=== PATIENT | female | born 1935 | race Caucasian/White ===

== ENCOUNTER → 2017-09-18 10:42 | Outpatient (CLI) | payer MEDICARE, SELFPAY ==
[2017-09-18 12:18] LABS: Anion Gap 4 (5-15); Chloride 104 mmol/L (98-107); Potassium 4.2 mmol/L (3.5-5.1); Sodium Level 137 mmol/L (136-145); Thyroid Stim Hormone (TSH) 2.03 uIU/mL (0.358-3.74)
[2017-09-19 01:21] LABS: Rapid Plasmin Reagin (RPR) NONREACTIVE (NONREACTIVE)
[2017-09-19 10:33] LABS: Vitamin B12 566 pg/mL (211-911)
== END ==
PROVIDERS: Family Provider Internal Medicine; PCP Internal Medicine; Visit Provider Psychiatry & Neurology Neurology
DX: R41.3 Other amnesia (principal)
CPT/HCPCS: 36415; 80051; 82607; 84443; 86592

== ENCOUNTER → 2017-09-23 09:31 | Outpatient (CLI) | payer MEDICARE, SELFPAY ==
--- NOTE | 2017-09-23 09:41 | MRI_ITS ---
STUDY: MRI BRAIN WITHOUT CONTRAST REASON FOR EXAM: Female, 82 years old. memory loss, recent falls TECHNIQUE: Standardized multiplanar fat and water weighted pulse sequences were obtained. COMPARISON: None. FINDINGS: Normal size of the ventricles and extra-axial spaces for the patient's age. There are a limited number of small white matter hyperintensities, distributed throughout the deep white matter tracts of the cerebral hemispheres, consistent with mild chronic white matter ischemic changes. Normal bilateral basal ganglia. Normal thalami. There is no extra-axial fluid accumulation. Normal flow voids within the major intracranial circulation suggesting patency by spin echo criteria. Normal sella turcica, pituitary gland, infundibular stalk, optic chiasm and hypothalamus. Normal tectal plate and pineal gland. Normal midbrain, jeffrey and medulla. Normal cerebellum. Normal basal cisterns. There is fluid in the left mastoid air cells. Normal bilateral internal auditory canals. There are bilateral ocular lens implants with otherwise normal intraorbital contents. There is mild mucosal thickening of the ethmoid and bilateral maxillary sinuses.. There is a 2.0 cm T1 and T2 hypointense lesion in the right frontal calvarium. No aggressive features are demonstrated. Normal visualized soft tissue structures. Normal visualized upper cervical spine. MRI/Brain without Contrast IMPRESSION: Involutional changes of the brain, as described above. There is mild small vessel ischemic white matter disease. There is left mastoiditis. There is a 2.0 cm lesion in the right frontal calvarium. Electronically Signed: Nathaly Tobin MD at 10:58 EDT , Service support ,
== END ==
PROVIDERS: Family Provider Internal Medicine; PCP Internal Medicine; Visit Provider Psychiatry & Neurology Neurology
DX: R41.3 Other amnesia (principal); S09.90XA Unspecified injury of head, initial encounter; Z91.81 History of falling
CPT/HCPCS: 70551

== ENCOUNTER 2018-02-19 09:00 | Outpatient (RCR) | payer MEDICARE, SELFPAY ==
--- NOTE | 2017-11-20 13:47 | HP.SP.AD_ITS ---
History - History Date of Eval: 11/20/17 Medical Diagnosis (from RX): Memory impairment Date of Onset of Diagnosis: Unknown; insidious onset with progressive nature Previous speech therapy: Yes Results: 04/08/2016 MBS revealed mild oropharyngeal dysphagia (R13.12) with brief transient penetration with complete ejection of thin liquids; no further intervention. Other Relevant Medical History/Diagnoses/Surgery: History of cerebrovascular accident / transient ischemic attack, anxiety, gastroesophageal reflux disease, diastolic dysfunction, hypertension, hypothyroidism, left ventricle hypertrophy , bradycardia Smoking Status: Former smoker Hx Smoking: No Hx Tobacco Use: No Hx Smoking Exposure: Yes - Pain Is pain an issue with your current prescribed condition?: Yes Patient Allergies - Allergies Allergies sulfamethoxazole [From ] Allergy (Verified 03/14/16 00:44) Unknown trimethoprim [From Decra] Allergy (Verified 03/14/16 00:44) Unknown venom-honey bee [bee venom (honey bee)] Allergy (Verified 03/14/16 00:44) Hives Subjective Cog/Ling/Com - Subjective Cognitive/Linguistic/Communication: Patient is a 82 year old female referred to [facility] due to reported progressive difficulties regarding memory, in particular working memory and prospective memory. Patient reports insidious onset of symptoms, with no clear causal event or time frame, appears rather aware of deficits, no obvious signs of anosognosia. Patient believes deficits may be associated with age / progressive deterioration. Patient attended the assessment alone, unable to verify accuracy of self-appraisal, with family questionnaire sent with the Patient after the Patient verbalized agreement. Patient reports a ?fairly mild stroke? a few years ago with transient balance issues, though without any longstanding changes in functioning aside from nonspecific ?vision issues? that do not preclude reading or driving. In addition, the Patient reports recurrent falls (? a few? over the last few years), though does not believe she has ever lost consciousness. 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 Patient reports she occasionally forgetting to take medication, though will typically remember within a few hours, and does not remember. Patient is a college educated individual (though was unsure as to what her degree was), and was previously employed as an cost accountant (currently retired), has not encountered any issues with product manager financial services or numerical processing. Patient reports some frustration, becomes discouraged with self / memory issues, occasional frustration with granddaughter (though does not classify as abnormal between individuals who live together), though no significant changes in personality. [place] Cognitive Assessment (MOCA): (> 26 abnormal). GPCOG Screening Test: 08/04 (0-4; cognitive impairment is indicated). Memory Impairment Screen (MIS): 05/05 (> 5; possible cognitive impairment). AD8 Dementia Screening Interview: 07/03 (2 or greater: cognitive impairment is likely to be present); Patient indicates changes in judgment, orientation, and daily problems with thinking and / or memory. Plan - Plan Plan: Patient presents with mild to moderate cognitive impairments, specifically in regards to memory functioning, with suspected mild impairments in attention and executive functioning requiring further workup, without a clear etiology of cause. Patient primarily deficits consisting of impaired short -term memory in addition to impaired working memory / attention complicating full information encoding and consolidation. Furthermore, some responses are somewhat concerning for issues with remote product manager e commerce memory (unable to recall what her degree was; did not recall ordering physician), though one would reasonably expect a significant impact on independent functioning with remote memory deficits. Progressive insidious nature of the Patients symptoms without clear causal event would suggest that this may be associated with a progressive neurological etiology (VaD vs. AD), though would require further workup via neurology to elucidate etiology of cause. Recommend further, more complex assessment measures to identify potential / suspected deficits in executive functioning / attention to assist in clarification of etiology. Patient requires continued skilled speech-language intervention targeting continual cognitive communication assessment in addition to training and implementation of external memory strategies to promote the highest level of safe, independent , and efficient level of functioning in the home and community environments. Would further consider Patient and family / caregiver education regarding cognitive changes associated with progressive neurological conditions pending further workup and identification of etiological cause. - Recommendations MBS: No Treatment Warranted: No - Frequency Frequency: 1x/Week Duration: 3 Months - Prognosis Prognosis: Good - Goal #1-5 Goal #1: Pt. will utilize external memory aids (calendar / memory book) during structured and unstructured therapeutic activities within 2 out of 3 sessions, to facilitate increased memory encoding and retrieval abilities within the home and social environments. Prompts: Min Goal #2: Pt. will participate in further assessment cognitive communication to facilitate comprehensive objective date in regards to current level of cognitive functioning, establish appropriateness for cognitive intervention, and to establish therapeutic goals at the supervised level Prompts: Min Education - Patient Instruction Patient Education: Diagnosis, Treatment Plan, Goals, Safety Precautions Person Taught: Patient Teaching Method: Discussion Response to teaching: Verbalize understanding
--- NOTE | 2018-01-15 12:05 | PN_ITS ---
REASON FOR REFERRAL The Patient is a 82 year old female referred to [facility] / [facility] due to reported progressive difficulties regarding memory, in particular working memory and prospective memory. Patient reports insidious onset of symptoms, with no clear causal event or time frame, appears rather aware of deficits, no obvious signs of anosognosia. The Patient believes deficits may be associated with age / progressive deterioration. The Patient has attended 6 sessions to date, and has been noted to forget the location of the therapy sessions during the initial portions of the intervention cycle, initially requiring assistance over the first 3 sessions to find therapy room despite attendance 2 weeks prior, further reports she became lost on the drive to the 12/04/2017 session, apparently seeing the [place] office and believing she was at the wrong location. The Patient reports driving to a nearby gas station to ask an older individual where [facility] was located (states she asked him because he was older, and was more likely to need something from here). The Patient has expressed frustration with her memory failures, and reports similar incident within the last 2 weeks (getting lost while driving to a friends home), fearful that her privileges will be revoked, frustrated that self-imposed restrictions have not ameliorated the situation. The Patient reports she becomes discouraged with self / memory issues, occasional frustration with granddaughter (though does not classify as abnormal between individuals who live together); reports she no longer cries, which worries her (history of depression w/ passing of daughter in her 30s, and within the last 10 years), though no significant changes in personality. The Patient reports a fairly mild stroke a few years ago with transient balance issues, though without any longstanding changes in functioning aside from nonspecific vision issues that do not preclude reading or driving. In addition, the Patient reports recurrent falls (a few over the last few years), though does not believe she has ever lost consciousness. 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 Patient reports she occasionally forgetting to take medication, though will typically remember within a few hours, and does not remember. Patient is a college educated individual (though was unsure as to what her degree was), and was previously employed as an systems accountant (currently retired), has not encountered any issues with chartered financial analyst or numerical processing. PAST MEDICAL HISTORY: History of cerebrovascular accident / transient ischemic attack, anxiety, gastroesophageal reflux disease, diastolic dysfunction, hypertension, hypothyroidism, left ventricle hypertrophy, bradycardia ASSESSMENT RESULTS: [place] Cognitive Assessment (MOCA): (> 26 abnormal) GPCOG Screening Test: 08/04 (0-4; cognitive impairment is indicated) Memory Impairment Screen (MIS): 05/05 (> 5; possible cognitive impairment) AD8 Dementia Screening Interview: 07/03 (2 or greater: cognitive impairment is likely to be present); Patient indicates changes in judgment, orientation, and daily problems with thinking and / or memory. Generalized Anxiety Disorder 7-item (BARBARA-7) scale: 5 possible mild anxiety disorder Cognitive-Linguistic Quick Test (CLQT) The Cognitive-Linguistic Quick Test (CLQT) is a criterion-referenced assessment designed for adults between the ages of 18 to 89 years old with known or suspected neurological dysfunctions. The CLQT is designed to enable a quick assessment of strengths and weaknesses over five cognitive domains: (1) attention, (2) memory, (3) language, (4) executive functions, and (5) visuospatial skills. Severity ratings of mild, moderate, severe, and within normal limits are established for each of the five cognitive domains. A total composite severity rating and a clock-drawing severity rating are also derived. The results of the CLQT are as follows: COGNITIVE DOMAIN SCORES: ATTENTION: (Cognitive Domain Score: 187, Severity Rating: WNL) MEMORY: (Cognitive Domain Score: 152, Severity Rating: WNL) EXECUTIVE FUNCTIONS: (Cognitive Domain Score: 24, Severity Rating: WNL) LANGUAGE: (Cognitive Domain Score: 29, Severity Rating: WNL) VISUOSPATIAL SKILLS: (Cognitive Domain Score: 84, Severity Rating: WNL) CLOCK DRAWING: (Score: 13, Severity Rating: WNL) COMPOSITE SEVERITY RATIN.0 (WNL) Functional Assessment of Verbal Reasoning and Executive Strategies (FAVRES) Completed the Functional Assessment of Verbal Reasoning and Executive Strategies (FAVRES) is a standardized cognitive communication assessment designed to assesses verbal reasoning, complex comprehension, discourse, and executive functioning during performance on a set of challenging functional tasks requiring processing of real life amounts of information. Performance is analyzed across several factors, with integration of a variety of types stimuli , and formulation of written and oral responses. Results of the FAVRES are as follows: INDIVIDUAL TASKS: TASK #1: PLANNING AN EVENT Accuracy: (Raw: 5 Percentile: 100th, SS: 108) Rational: (Raw: 4, Percentile: 15th, SS: 69) Time: (Raw: 11, Percentile: 6th, SS: 73) Total Reasoning Sub-skills: (Raw: 7) TASK #2: SCHEDULING Accuracy: (Raw: 3, Percentile: 3rd, SS: 51) Rational: (Raw: 0, Percentile: 6th, SS: 58) Time: (Raw: 40, Percentile: <1st, SS: 64) Total Reasoning Sub-skills: (Raw: 10) TASK #3: MAKING A DECISION Accuracy: (Raw: 2, Percentile: <1st, SS: 29) Rational: (Raw: 1, Percentile: <1st, SS: 1) Time: (Raw: 8, Percentile: 45th, SS: 99) Total Reasoning Sub-skills: (Raw: 6) TASK #4: BUILDING A CASE Accuracy: (Raw: 3, Percentile: 2nd, SS: 41) Rational: (Raw: 0, Percentile: <1st, SS: 16) Time: (Raw: 20, Percentile: 2nd, SS: 66) Total Reasoning Sub-skills: (Raw: 14) TOTAL TEST: Accuracy: (Raw: 13, Percentile: <1st, SS: 40, SEVERE) Rational: (Raw: 5, Percentile: <1st, SS: 3, SEVERE) Time: (Raw: 79, Percentile: <1st, SS: 63, SEVERE) Total Reasoning Sub-skills: (Raw: 36, Percentile: >3rd, SS: 76, MILD) CLINICAL FINDINGS AND RECOMMENDATIONS: The Patient presents with mild to moderate cognitive impairments, specifically in regards to memory functioning, with suspected mild impairments in attention and executive functioning without a clear etiology of cause, though strongly suspect a progressive neurological etiology (dementia, likely GDS level 3-4). Patient requires continued skilled speech-language intervention targeting continual cognitive communication assessment in addition to training and implementation of external memory strategies to promote the highest level of safe, independent, and efficient level of functioning in the home and community environments. Would further consider Patient and family / caregiver education regarding cognitive changes associated with progressive neurological conditions pending further workup and identification of etiological cause. FUNCTIONAL OUTCOMES: OUTCOME ONE: The Patient will utilize external memory aids (calendar / memory book) during structured and unstructured therapeutic activities within 2 out of 3 sessions, to facilitate increased memory encoding and retrieval abilities within the home and social environments. OUTCOME TWO: Treatment plan adjustment as needed.
--- NOTE | 2018-02-19 10:26 | HP.SP.DC ---
ST Discharge Summary - Discharged: Discharge: The Patient is a 82 year old female who has attended 10 skilled speech-language intervention sessions at [facility] due to progressive difficulties regarding memory, in particular working memory and prospective memory, with workup revealing mild to moderate cognitive impairments, specifically in regards to memory functioning, with suspected mild impairments in attention and executive functioning without a clear etiology of cause, though strongly suspect a progressive neurological etiology (dementia, likely GDS level 3-4). Intervention sessions have targeting training and implementation of external memory strategies to promote the highest level of safe, independent, and efficient level of functioning in the home and community environments, with safety measures prophylactically implemented by family (granddaughter has moved in to provide assistance), though concerns with driving safety persist, with the Patient politely declining further evaluation at this time. All goals have been met, with discharge appropriate at this time. Would consider annual workup to identify the Patients cognitive communication profile, as a progressive decline in functioning is expected.
== END 2018-02-19 19:00 | disposition home or self-care (01) ==
LOC: SP 09:00
PROVIDERS: Family Provider Internal Medicine; PCP Internal Medicine; Visit Provider Nurse Practitioner Acute Care
DX: R47.01 Aphasia (principal); R41.0 Disorientation, unspecified
CPT/HCPCS: 92507; 92523

== ENCOUNTER 2019-02-18 16:41 | Inpatient (IN) | payer MEDICARE, SELFPAY ==
[2019-02-18] VITALS (10 sets, daily range): BP systolic 161–202; BP diastolic 71–89; PULSE 55–63; RESP 14–20; TEMP 36.7–36.8; O2SAT 96–98; BMI 26.9; BMI 25.2
--- NOTE | 2019-02-18 16:54 | ED.RN ---
MD AWARE, STROKE TEAM NOT CALLED AT THIS TIME.
--- NOTE | 2019-02-18 17:04 | CT_ITS ---
We are attempting to reach an attending provider to discuss findings. An addendum with communication details will be sent when the communication is complete. STUDY: CT BRAIN WITHOUT CONTRAST REASON FOR EXAM: Female, 83 years old. Fall RADIATION DOSAGE (If Supplied By Facility): DLP = ( 812.98 ) mGycm TECHNIQUE: Transaxial CT imaging of the brain was performed without administration of intravenous contrast material. Individualized dose optimization techniques were used for this CT. COMPARISON: None. FINDINGS: There is no acute bleed or infarct. There are chronic ischemic and atrophic changes. The ventricles are normal in configuration. There is no hydrocephalus. The visualized paranasal sinuses are clear. The mastoid air cells are well aerated. There is no skull fracture. CT/Brain/Head without Contrast IMPRESSION: No acute intracranial abnormality. Chronic ischemic and atrophic changes. Electronically Signed: Ricci Hays, at 17:23 EDT Tel , Service support ,
--- NOTE | 2019-02-18 17:04 | RAD_ITS ---
STUDY: X-RAY CHEST REASON FOR EXAM: Female, 83 years old. Chest pain TECHNIQUE: Frontal view of the chest COMPARISON: X-Ray Chest March 14, 2016 FINDINGS: Pulmonary vascular prominence is present without radha edema. There is no consolidation. There are no pleural effusions. There is no pneumothorax. The heart is normal in size. The visualized osseous structures are within normal limits. RAD/Chest 1 View IMPRESSION: Pulmonary vascular prominence without radha edema. No consolidation. Electronically Signed: Ricci Hays, at 18:27 EDT Tel , Service support ,
--- NOTE | 2019-02-18 17:04 | EKG12_ITS ---
Test Reason : NEURO Blood Pressure : / mmHG Vent. Rate : 055 BPM Atrial Rate : 055 BPM P-R Int : 172 ms QRS Dur : 066 ms QT Int : 484 ms P-R-T Axes : 063 038 062 degrees QTc Int : 463 ms Sinus bradycardia Possible Left atrial enlargement Borderline ECG Confirmed by KEIKO BAER, KERRI ([id number]), fan mail editor CHANDA PORTILLO ([id number]) on 02/22/2019 10:53:29 AM Referred By: Karley Lanier Confirmed By:KERRI ADEN MD
--- NOTE | 2019-02-18 17:04 | CT_ITS ---
STUDY: CT CERVICAL SPINE WITHOUT CONTRAST REASON FOR EXAM: Female, 83 years old. Injury one day ago RADIATION DOSAGE (If Supplied By Facility): CTDIvol = ( 20.95 ) mGy, DLP = ( 453.83 ) mGycm TECHNIQUE: High resolution transaxial imaging was performed without contrast material. Sagittal and coronal images were reconstructed. Individualized dose optimization techniques were used for this CT. COMPARISON: None FINDINGS: Normal craniovertebral junction. Normal anterior atlantoaxial articulation. Normal odontoid process. There is straightening of the normal cervical lordosis. There is diffuse endplate spondylosis of the mid to lower cervical spine. C2-3: Normal endplates. Normal disc height and morphology. Normal central canal and intervertebral neuroforamina. C3-4: There is mild disc space narrowing. There are bilateral degenerative facet changes. There is no foraminal narrowing or central canal stenosis. C4-5: There is mild disc space narrowing. There are bilateral hypertrophic degenerative facet changes. There is no central canal stenosis or foraminal narrowing. C5-6: There is moderately severe disc space narrowing. There is no central canal stenosis or foraminal narrowing. There are bilateral degenerative facet changes. C6-7: There is mild disc space narrowing. The facets are within normal limits. There is no central canal stenosis or foraminal narrowing. C7-T1: Normal endplates. Normal disc height and morphology. Normal central canal and intervertebral neuroforamina. Bilateral apical pulmonary fibrosis is seen. CT/Spine Cervical without Contras IMPRESSION: Multilevel degenerative changes, as described above. There is no evidence of fracture or subluxation. Electronically Signed: Hai Grijalva MD at 17:50 EDT , Service support ,
[2019-02-18 17:16] LABS: Absolute Lymphocyte Count 2.97 X10^3/uL (0.83-4.51); Absolute Neutrophil Count 6.2 X10^3/uL (2.0-7.7); Basophil# 0.04 X10^3/uL; Basophil% 0.4 % (0-1); Eosinophils% 1.9 % (0-5); Hematocrit 44.4 % (37-47); Hemoglobin 14.5 g/dL (12.0-15.0); Lymphocyte # 2.97 X10^3/ul (4.0); Lymphocyte % 28.6 % (19-41); Mean Corp Hgb Conc 32.7 g/dL (32-36); Mean Corpuscular Hgb 29.6 pg (27.0-32.0); Mean Corpuscular Volume 90.6 fL (81-99); Mean Platelet Vol. 9.8 fl (6.2-12.0); Monocyte# 0.92 X10^3/uL; Monocyte% 8.9 % (0-10); NRBC Flagged by Analyzer 0 % (0-5); Neutrophil # 6.22 X10^3/uL (2.7-7.7); Neutrophil % 59.8 % (47-70); Platelet Count 256 K/mm3 (150-450); RBC Distribution Width CV 13.7 % (11.6-14.6); White Blood Count 10.4 K/mm3 (4.4-11.0)
[2019-02-18 17:28] LABS: Prothrombin Time (Protime)PT. 12.9 SECONDS (11.7-14.9)
[2019-02-18 17:29] LABS: Partial Thromboplast Time 30.2 Seconds (24.1-36.2)
[2019-02-18 17:50] LABS: Anion Gap 6 (5-15); BUN 24 mg/dL (7-18); BUN/Creat Ratio 18.5 RATIO (10-20); Calcium,Total 9.5 mg/dL (8.5-10.1); Chloride 104 mmol/L (98-107); EST Glomerular Filtration Rate 41 mL/min (>60); Est Glom Filt Rate - Afr Amer 50 mL/min (>60); Estimated Creatinine Clearance 28.99 ml/min; Glucose 112 mg/dL (74-106); Potassium 4.8 mmol/L (3.5-5.1); Sodium Level 138 mmol/L (136-145)
[2019-02-18 17:56] LABS: Bacteria 0 SEEN /hpf (None Seen); Red Blood Cells-Urine 0 SEEN /hpf (0-5); Squamous Epithelial Cells - UA 0 SEEN /hpf (5-10)
[2019-02-18 17:59] LABS: Color, Urine Yellow (Yellow); Glucose, Dipstick Normal (Normal); Ketone-Dipstick Negative (Negative); Leukocyte Esterase-Dipstick 25 /ul (Negative); Nitrite-Dipstick Negative (Negative); Occult Blood-Urine 10 /ul (Negative); Protein-Dipstick 15 mg/dl (Negative); Specific Gravity, Urine 1.025 (1.002-1.030); Urine Bilirubin Dipstick Negative (Negative); Urine Clarity Clear (Clear); Urine Urobilinogen Normal (Normal)
[2019-02-18 18:06] LABS: Hyaline Cast 0-5 SEEN /lpf (0-5)
[2019-02-18 18:07] LABS: Mucous, Urine RARE /hpf (<or=2+); White Blood Cells 0-5 SEEN /hpf (0-5)
--- NOTE | 2019-02-18 18:46 | ED.DCSUM_ITS ---
- ER Visit Summary Date of Service: 02/18/19 Chief Complaint: Stroke symptoms History of Present Illness: The patient is a 83 F presenting for stroke symptoms. Patient was last seen well between 7 and 9 PM last night. Today she had decline in functional status. She had difficulty with walking and getting dressed. She has had difficulty with her speech. She has been more confused than usual. She has a history of baseline dementia but family states she typically gets around well without assistance. She did have a fall last night as evidenced by an abrasion on her nose. Fall was unwitnessed. She does not recall the fall. She is able to ambulate with assistance today. Physical Examination: Vitals are stable. Patient is afebrile. Alert no acute distress. HEENT exam abrasion to nose Neck is supple, nontender Lungs are clear and equal bilaterally. Heart is regular rate and rhythm. Abdomen is soft nontender nondistended. Extremities are unremarkable. Skin is warm and dry. NIH 4: 1 for LOC questions, 1 for left leg weakness, 1 for right leg weakness, 1 for best language. Remainder of exam is unremarkable. Emergency Department Course and Treatment: EKG sinus bradycardia rate of 55. Chest x-ray shows no consolidation. CT head shows chronic changes, no bleed. CT C-spine shows no fracture. CBC, chemistries unremarkable other than BUN 24, creatinine 1.3, glucose 112. Previous creatinine 0.92. INR 1.0. Urinalysis unremarkable. On arrival discussed with [facility] neurology Dr. Tobin. tPA is not indicated. Recommend admission for MRI. Discussed with the hospitalist for admission. Disposition: Admission Impression: CVA This note was generated with [employer] dictation software. It may contain incorrect words, spelling, and punctuation that were not noted in review of the chart prior to signing ED Disposition - Plan for ED Patient: Referrals: Vaibhav Colvin MD [Primary Care Provider] -
--- NOTE | 2019-02-18 18:56 | HP.PCM_ITS ---
History of Present Illness Date of Admission: 02/18/19 Chief Complaint: altered mental status, weakness The patient is a 83 year old F with a past medical history as listed which includes dementia. She was admitted through the ED on 02/18/2019 with a complaint of weakness and difficulty with speech as well as altered mental status. History was mainly taken for patient had sudden. According to son, patient was last seen well at around 9:30 PM last night which was her normal self and could ambulate albeit slowly. She also had a normal speech. This morning she came out of her room and they noted that she was much weaker and had difficulty with walking and getting dressed. They also noted that she was having difficulty with her speech and had difficulty finding words and seemed confused. He also stated that she was very weak and could barely lift her arms or legs. They believe that she fell last night at patient had an abrasion on her nose today, it was however an unwitnessed fall and patient could not give any information about the suspected fall. Therefore decided to bring her into the ED. Vitals in the ED showed severely elevated blood pressure 182/85 respiratory rate of 20. Chemistry showed creatinine of 1.3, with a baseline of 0.9. CBC was unremarkable and initial troponin was negative. Initial CT of the brain also showed no acute intracranial pathology and EKG showed sinus bradycardia with heart rate of 155. CT of the cervical spine showed multilevel degenerative changes but no evidence of fracture or subluxation. Chest x-ray showed pulmonary vascular prominence without radha edema no consolidation. She has been admitted to be managed for debility and general weakness rule out stroke. [] Past Medical History Past Medical History (Chronic Problems): Chronic Problems Hypothyroidism (Chronic) Diastolic dysfunction (Chronic) LVH (left ventricular hypertrophy) (Chronic) HTN (hypertension) (Chronic) CVA (cerebral vascular accident) (Chronic) AMY (obstructive sleep apnea) (Chronic) Allergies sulfamethoxazole [From ] Allergy (Verified 02/18/19 16:59) Unknown trimethoprim [From Decra] Allergy (Verified 02/18/19 16:59) Unknown venom-honey bee [bee venom (honey bee)] Allergy (Verified 02/18/19 16:59) Hives Home Medications: Ambulatory Orders Medication Instructions Recorded Aspirin [Aspirin, Baby] 81 mg PO DAILY@0800 12/26/15 Levothyroxine [Synthroid] 75 mcg PO DAILY 12/26/15 Lisinopril [Zestril] 40 mg PO DAILY 12/26/15 Bupropion HCl 75 mg PO DAILY 02/18/19 Carvedilol 25 mg PO DAILY 02/18/19 Escitalopram Oxalate 20 mg PO DAILY 02/18/19 Surgical History: - - tonsils out,tubal Psychiatric History: Depression Lives: With Family Smoking Status: Former smoker Tobacco Use: Non-smoker Alcohol: None Drugs: None - *Family History Maternal History Items: Hypertension, Stroke Paternal History Items: - - thinks he of a stroke ast well. Review of Systems Constitutional: Reports: Malaise, Weakness, Fatigue. Denies: Chills, Fever, Weight Change Eyes: Denies: Blurred vision HEENT: Denies: Head Aches, Sinus Congestion, Sinus Drainage Cardiovascular: Denies: Chest Pain, Palpitations Respiratory: Denies: Cough, Shortness of breath at rest, Sputum production Gastrointestinal: Denies: Abdominal Pain, Nausea, Vomiting Genitourinary: Denies: Dysuria Musculoskeletal: Denies: Joint Pain, Joint Tenderness Skin: Denies: Rash, Wounds Neurological: Reports: Balance problems, Change in Speech, Slurred speech, Confusion Psychiatric: Denies: Anxiety, Depression, Homicidal Ideations, Suicidal Ideations Hematologic/ Lymphatic: Denies: Easy Bruising, Easy Bleeding VTE Information - Inpt Only VTE Present on Admission: No VTE Pharm Prophylaxis ordered?: Yes - Physical Exam Vitals/I&O's: Vital Signs Temp Pulse Resp BP Pulse Ox 98.1 F 57 L 16 176/80 H 97 02/18/19 16:52 02/18/19 18:04 02/18/19 18:04 02/18/19 18:04 02/18/19 18:04 Oxygen Delivery Method Room Air Weight: 161 lb 13.109 oz Body Mass Index (BMI) 26.9 Finger Stick Blood Glucose 121 General: Alert, Cooperative, Confused HEENT: Atraumatic, PERRLA, EOMI, Normocephalic Oral: Dry Mucosa Neck: Supple, No JVD, Negative Carotid Bruits Lungs: Clear to auscultation, Normal air movement, No rhonchi, No wheeze Cardiovascular: Regular rate, Regular Rhythm, Normal S1, Normal S2, No murmurs Abdomen: Bowel Sounds Present, Soft, Non Tender, Non-Distended, No Hepato- splenomegaly Extremities: No clubbing, No cyanosis, No edema, Capillary Refill Less than 3 Seconds Skin: No rashes, No breakdown Musculoskeletal: No Tenderness to Palpation of Joints or Extremities Lymphatic: No Cervical, Supraclavicular, or Inguinal Adenopathy Neurological: Cranial nerves II-XII grossly intact, - - does appear to have difficulty finding words- mild expressive aphasia, power in all extremities is 5/5; no tingling or numbness. NIHSS is 1 Laboratory Results 02/18/19 17:03: WBC 10.4, RBC 4.90, Hgb 14.5, Hct 44.4, MCV 90.6, MCH 29.6, MCHC 32.7, RDW Std Deviation 46.0 H, RDW Coeff of Cirilo 13.7, Plt Count 256, MPV 9.8, Immature Gran % (Auto) 0.400, Neut % (Auto) 59.8, Lymph % (Auto) 28.6, [place] % (Auto) 8.9, Eos % (Auto) 1.9, Baso % (Auto) 0.4, Absolute Neuts (auto) 6.2, Absolute Lymphs (auto) 2.97, Nucleated RBC % 0 02/18/19 17:03: PT 12.9, INR 1.0, APTT 30.2 02/18/19 17:03: Sodium 138, Potassium 4.8, Chloride 104, Carbon Dioxide 28.0, Anion Gap 6, BUN 24 H, Creatinine 1.30 H, Estim Creat Clear Calc 28.99, Est GFR (MDRD) Af Amer 50 L, Est GFR (MDRD) Non-Af 41 L, BUN/Creatinine Ratio 18.5, Glucose 112 H, Calcium 9.5, Troponin I < 0.015 02/18/19 17:45: Urine Color Yellow, Urine Clarity Clear, Urine pH 5.0, Ur Specific [place] 1.025, Urine Protein 15 H, Urine Glucose (UA) Normal, Urine Ketones Negative, Urine Occult Blood 10 H, Urine Nitrite Negative, Urine Bilirubin Negative, Urine Urobilinogen Normal, Ur Leukocyte Esterase 25 H, Urine RBC 0 SEEN, Urine WBC 0-5 SEEN, Ur Squamous Epith Cells 0 SEEN, Urine Bacteria 0 SEEN, Hyaline Casts 0-5 SEEN, Urine Mucus RARE Assessment/Plan All Active Problems Anxiety (Acute) GERD (gastroesophageal reflux disease) (Acute) Bradycardia (Acute) 83 y/o admitted with a complaint of weakness, slurred speech and confusion 1. Acute metabolic encephalopathy, to rule out stroke * admit to pCU with telemetry * neurochecks q4hrs * NPO until she passes dysphagia screen, then advance diet to 2gram low sodium diet as tolerated * PO aspirin 81mg daily * for MRI tomorrow; 2D echo, CTA of the head and neck with contrast * check lipid panel and A1C * neurology consult * PT/OT consult * fall precautions * 2. Bradycardia: * Heart rate was 55 EKG. Sinus bradycardia. Currently asymptomatic. Will monitor and if it falls further. * TSH ordered. * Continue carvedilol for now. * 3. Mild SAYDA: * Creatinine is 1.3. Baseline is around 0.9. * Will hydrate with IV fluids and monitor. * 4. Dementia: Unclear which type of dementia. Follows with neurology on outpatient basis. She will continue. 5. Depression: On bupropion 6. Hypertension: * Poorly controlled. Blood pressure up in the 180s systolic. Son states systolic blood pressure usually in the 130s. * Goal is for blood pressure 130/80 or less if stroke is ruled out. On carvedilol 25 mg daily. * We will continue for now as she appears asymptomatic from bradycardia. If bradycardia persists, will hold. IV hydralazine PRN. 7. Hypothyroidism: On Synthroid 8. DVT prophylaxis: Lovenox CODE STATUS: DNR CCA * Patient counseled extensively about different types of CODE STATUS including full code, DNR CCA and DNR CCA. Patient elects to be DNRCCA. Total [id number] time 16 minutes. Code Visit OBSV E&M: 65900 Initial observation care L3 Procedures: 37563 Advncd Care Plan 30 Min
[2019-02-19] VITALS (12 sets, daily range): BP systolic 141–190; BP diastolic 70–99; PULSE 60–76; RESP 16–18; TEMP 36.7–37.1; O2SAT 95–98; BMI 25.2
[2019-02-19] MEDS: Levothyroxine 75 MCG Tablet PO (05:25)
--- NOTE | 2019-02-19 05:55 | CT_ITS ---
STUDY: CTA HEAD AND NECK WITH CONTRAST REASON FOR EXAM: Female, 83 years old. Confusion and weakness with difficulty speaking, status post fall yesterday. Mental status change. RADIATION DOSAGE (If Supplied By Facility): CTDIvol = ( 25.09 ) mGy, DLP = ( 622.95 ) mGycm TECHNIQUE: CT angiography was performed with a multi-detector CT scanner. Data acquisition was obtained from the skull base through the vertex following intravenous administration of IV 100mL [id number]-[id number] 100ML. MIP images were reconstructed from the axial data set. Post-processing of the angiographic images was performed, with multiplanar reformation and 3D reconstruction. Individualized dose optimization techniques were used for this CT. COMPARISON: No relevant priors. FINDINGS: Normal bilateral petrous carotid arteries. There is calcified plaque formation of the right cavernous carotid artery, without a cross-sectional luminal stenosis. There is calcified plaque formation of the left cavernous carotid artery, without a cross-sectional luminal stenosis. There is non-visualization of the right A1 segment of the anterior cerebral arteries consistent with either aplastic development or an occlusion. Normal left A1 segments of the anterior cerebral artery. Normal intact anterior communicating artery (ACOM). Normal bilateral A2 segments of the anterior cerebral arteries. Normal right M1 and M2 segments of the middle cerebral arteries, with a normal M1 bifurcation. Normal left M1 and M2 segments of the middle cerebral arteries, with a normal M1 bifurcation. Normal right posterior communicating artery (PCOM). There is a persistent origin of the left posterior cerebral artery with absence of the posterior communicating artery (PCOM). Normal bilateral vertebral arteries. Normal basilar artery with a normal basilar bifurcation. The visualized bilateral superior cerebellar (SCA) arteries are normal. Normal bilateral P1, P2 and visualized P3 segments of the posterior cerebral arteries. There is no demonstrated aneurysm of the [place]. There is no demonstrated abnormality of the visualized brain. AORTIC ARCH: There is mild atherosclerotic calcific plaque formation of the aortic arch and great vessels arising from the aortic arch, without a hemodynamically significant stenosis. There is a normal origin of the brachiocephalic, left common carotid, and left subclavian arteries. RIGHT CAROTID ARTERIES: Normal right common carotid artery (CCA). There is mild atherosclerotic plaque formation with minimal narrowing of the right carotid bulb. Normal origin of the right internal carotid (ICA) artery without a hemodynamically significant stenosis. Normal visualized cervical portion of the right internal carotid artery. Normal origin of the right external carotid artery (ECA). LEFT CAROTID ARTERIES: Normal left common carotid artery (CCA). Prominent left common carotid bulb, larger compared to right with calcified atherosclerotic disease and no significant narrowing. Minimal calcified plaque at the origin of the left internal carotid (ICA) artery without a hemodynamically significant stenosis. Normal visualized cervical portion of the left internal carotid artery. Normal origin of the left external carotid artery (ECA). VERTEBRAL ARTERIES: Normal bilateral vertebral arteries. CT/CTA Head AND Neck W/ Contrast IMPRESSION: CTA head: Mild calcified atherosclerotic changes as described above, with no evidence of significant stenosis or aneurysm. CTA NECK:. Mild calcified atherosclerotic changes as described above with no evidence of hemodynamically high-grade stenosis. Electronically Signed: Natalee Duong MD at 6:43 EDT , Service support ,
--- NOTE | 2019-02-19 07:00 | ECHOD_ITS ---
Reason For Study: TIA/CVA Procedure This was a 2D Doppler, Color Flow transthoracic echocardiogram. Exam performed portable in patient room. Left Ventricle Normal LV size. Left ventricular systolic function is normal. The estimated ejection fraction is 65 %. Stage 1 diastolic dysfunction. No regional wall motion abnormalities noted. Right Ventricle Normal RV size. Normal systolic function. Atria Normal left atrium. Normal right atrium. Bubble contrast study negative for right to left interatrial shunt. Mitral Valve Normal mitral valve. Tricuspid Valve Normal tricuspid valve. Mild (1+) tricuspid valve insufficiency. Pulmonary artery systolic pressure is 28 mmHg. Aortic Valve Normal aortic valve. Pulmonic Valve Normal pulmonic valve. Great Vessels Normal aortic root. The pulmonary artery is normal size. Normal inferior vena cava. Pericardium/Pleural No pericardial effusion. Medication Performed a rapid injection of agitated mix of 9 cc saline and 1cc air to assess for atrial septal defect. MMode/2D Measurements & Calculations LVIDd: 3.8 cm IVSd: 1.2 cm Ao root diam: 2.6 cm LVIDs: 2.0 cm LVPWd: 0.96 cm RVDd: 3.0 cm FS: 46.4 % LAV(MOD-bp): 39.7 ml LA A4 area: 13.4 cm2 LA dimension(2D): 3.4 cm LAV(MOD-bp) Indexed: 22.0 ml/m2 LAV(MOD-sp2): 39.3 ml LAV(MOD-sp4): 34.6 ml Time Measurements MV dec time: 0.36 sec Doppler Measurements & Calculations MV E max thom: 63.7 cm/sec Lat Peak E' Thom: 4.9 cm/sec Med Peak E' Thom: 5.4 cm/sec MV A max thom: 104.0 cm/sec E/E' lat: 13.0 E/E' med: 11.8 MV E/A: 0.61 Ao V2 max: 149.1 cm/sec LV V1 max: 92.4 cm/sec PA V2 max: 79.0 cm/sec Ao max P.9 mmHg LV V1 max P.4 mmHg TR max thom: 246.5 cm/sec TR max P.3 mmHg Interpretation Summary Normal LV size. Left ventricular systolic function is normal. The estimated ejection fraction is 65 %. Stage 1 diastolic dysfunction. Bubble contrast study negative for right to left interatrial shunt. Ordering Physician: Karley Lanier Referring Physician: Vaibhav Colvin Performed By: Miguelina Thorpe, KRYSTLE, RVT
--- NOTE | 2019-02-19 07:00 | MRI_ITS ---
We are attempting to reach an attending provider to discuss findings. An addendum with communication details will be sent when the communication is complete. STUDY: MRI BRAIN WITHOUT CONTRAST REASON FOR EXAM: Female, 83 years old. Weakness, confusion, stroke TECHNIQUE: Standardized multiplanar fat and water weighted pulse sequences were obtained. COMPARISON: CT 02/18/2019, MRI 09/23/2017 FINDINGS: There is moderate cerebral atrophy with widening of the extra-axial spaces and ventricular dilatation. There are multiple white matter hyperintensities, distributed throughout the deep white matter tracts of the cerebral hemispheres, consistent with moderate chronic white matter ischemic changes. 1 cm oval hyperintensities of the left thalamus and the left putamen demonstrate faint restricted diffusion consistent with right subacute infarcts. Normal T2* images of the brain without demonstrated susceptibility artifact. There is no demonstrated hemosiderin stain. Normal bilateral basal ganglia. Normal thalami. There is no extra-axial fluid accumulation. Normal flow voids within the major intracranial circulation suggesting patency by spin echo criteria. Normal sella turcica, pituitary gland, infundibular stalk, optic chiasm and hypothalamus. Normal tectal plate and pineal gland. Normal midbrain, jeffrey and medulla. Normal cerebellum. Normal basal cisterns. Normal bilateral temporal bones. Normal bilateral internal auditory canals. There are bilateral ocular lens implants with otherwise normal intraorbital contents. Normal visualized paranasal sinuses. Normal calvarium and skull base. Normal visualized soft tissue structures. Normal visualized upper cervical spine. 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 Electronically Signed: Blu Arana MD at 9:35 EDT Tel , Service support ,
[2019-02-19 07:27] LABS: Absolute Lymphocyte Count 3.29 X10^3/uL (0.83-4.51); Absolute Neutrophil Count 4.5 X10^3/uL (2.0-7.7); Basophil# 0.07 X10^3/uL; Basophil% 0.8 % (0-1); Eosinophil# 0.29 X10^3/uL; Eosinophils% 3.2 % (0-5); Hematocrit 42.7 % (37-47); Hemoglobin 13.8 g/dL (12.0-15.0); Lymphocyte # 3.29 X10^3/ul (4.0); Lymphocyte % 36.8 % (19-41); Mean Corp Hgb Conc 32.3 g/dL (32-36); Mean Corpuscular Hgb 29.2 pg (27.0-32.0); Mean Corpuscular Volume 90.5 fL (81-99); Mean Platelet Vol. 9.7 fl (6.2-12.0); Monocyte# 0.81 X10^3/uL; Monocyte% 9.1 % (0-10); NRBC Flagged by Analyzer 0 % (0-5); Neutrophil # 4.46 X10^3/uL (2.7-7.7); Neutrophil % 49.9 % (47-70); Platelet Count 238 K/mm3 (150-450); RBC Distribution Width CV 13.3 % (11.6-14.6); RBC Distribution Width SD 44.5 fl (35.1-43.9); Red Blood Count 4.72 M/mm3 (4.2-5.4); White Blood Count 8.9 K/mm3 (4.4-11.0)
[2019-02-19 07:52] LABS: Anion Gap 5 (5-15); BUN 17 mg/dL (7-18); BUN/Creat Ratio 19.9 RATIO (10-20); Calcium,Total 8.5 mg/dL (8.5-10.1); Chloride 103 mmol/L (98-107); Cholesterol 221 mg/dL (200); Creatinine, Serum 0.85 mg/dL (0.55-1.02); EST Glomerular Filtration Rate 67 mL/min (>60); Est Glom Filt Rate - Afr Amer 81 mL/min (>60); Estimated Creatinine Clearance 46.12 ml/min; Glucose 115 mg/dL (74-106); High Density Lipoprotein 33 mg/dL; Potassium 3.9 mmol/L (3.5-5.1); Sodium Level 135 mmol/L (136-145); Thyroid Stim Hormone (TSH) 3.18 uIU/mL (0.358-3.74); Triglycerides 176 mg/dL; Very Low Density Lipoprotein 35 mg/dL (5-40)
[2019-02-19] MEDS: Escitalopram Oxalate 20 MG Tablet PO (10:22)
[2019-02-19] MEDS: buPROPion 75 MG Tablet PO (10:22)
[2019-02-19] MEDS: Aspirin 81 MG TAB.CHEW PO (10:22)
[2019-02-19] MEDS: Enoxaparin 30 MG/0.3 ML Syringe SC (10:22)
--- NOTE | 2019-02-19 10:47 | CASEMGMT ---
LW/POA forms scanned into summary tab of e-chart. Pt's son Dion Fung is listed as medical POA. RICARDA Ellis
--- NOTE | 2019-02-19 11:44 | PCM.CONS.GEN ---
Reason for Consult Date of Consultation: 02/19/19 Reason for Consultation: confusion History of Present Illness: The patient is a 83 year old Fwith dementia, admitted as below, unable to give history, knows she is in [facility]. doesnt know date but knows month, not year. per admit note:The patient is a 83 year old F with a past medical history as listed which includes dementia. She was admitted through the ED on 02/18/2019 with a complaint of weakness and difficulty with speech as well as altered mental status. History was mainly taken for patient had sudden. According to son, patient was last seen well at around 9:30 PM last night which was her normal self and could ambulate albeit slowly. She also had a normal speech. This morning she came out of her room and they noted that she was much weaker and had difficulty with walking and getting dressed. They also noted that she was having difficulty with her speech and had difficulty finding words and seemed confused. He also stated that she was very weak and could barely lift her arms or legs. They believe that she fell last night at patient had an abrasion on her nose today, it was however an unwitnessed fall and patient could not give any information about the suspected fall. Therefore decided to bring her into the ED. Vitals in the ED showed severely elevated blood pressure 182/85 respiratory rate of 20. Chemistry showed creatinine of 1.3, with a baseline of 0.9. CBC was unremarkable and initial troponin was negative. Initial CT of the brain also showed no acute intracranial pathology and EKG showed sinus bradycardia with heart rate of 155. CT of the cervical spine showed multilevel degenerative changes but no evidence of fracture or subluxation. Chest x-ray showed pulmonary vascular prominence without radha edema no consolidation. She has been admitted to be managed for debility and general weakness rule out stroke Past Medical History Past Medical History (Chronic Problems): Chronic Problems Hypothyroidism (Chronic) Diastolic dysfunction (Chronic) LVH (left ventricular hypertrophy) (Chronic) HTN (hypertension) (Chronic) CVA (cerebral vascular accident) (Chronic) AMY (obstructive sleep apnea) (Chronic) Allergies sulfamethoxazole [From Septra] Allergy (Verified 02/18/19 16:59) Unknown trimethoprim [From Septra] Allergy (Verified 02/18/19 16:59) Unknown venom-honey bee [bee venom (honey bee)] Allergy (Verified 02/18/19 16:59) Hives Home Medications: Ambulatory Orders Medication Instructions Recorded Aspirin [Aspirin, Baby] 81 mg PO DAILY@0800 12/26/15 Levothyroxine [Synthroid] 75 mcg PO DAILY 12/26/15 Lisinopril [Zestril] 40 mg PO DAILY 12/26/15 Bupropion HCl 75 mg PO DAILY 02/18/19 Carvedilol 25 mg PO DAILY 02/18/19 Escitalopram Oxalate 20 mg PO DAILY 02/18/19 Surgical History: - - tonsils out,tubal Psychiatric History: Depression Lives: With Family Smoking Status: Former smoker Tobacco Use: Non-smoker Alcohol: None Drugs: None - *Family History Maternal History Items: Hypertension, Stroke Paternal History Items: - - thinks he of a stroke ast well. Review of Systems Constitutional: Denies: Chills, Fever, Weight Change HEENT: Denies: Head Aches, Sinus Congestion, Sinus Drainage Cardiovascular: Denies: Chest Pain, Palpitations Respiratory: Denies: Cough, Shortness of breath at rest, Sputum production Gastrointestinal: Denies: Abdominal Pain, Nausea, Vomiting Genitourinary: Denies: Dysuria Musculoskeletal: Denies: Joint Pain, Joint Tenderness Skin: Denies: Rash, Wounds Neurological: Denies: Numbness, Tingling, Focal weakness Psychiatric: Denies: Anxiety, Depression, Homicidal Ideations, Suicidal Ideations Hematologic/ Lymphatic: Denies: Easy Bruising, Easy Bleeding - Physical Exam Vitals/I&O's: Vital Signs Temp Pulse Resp BP Pulse Ox 36.8 C 65 16 163/99 H 97 02/19/19 07:54 02/19/19 07:54 02/19/19 07:54 02/19/19 07:54 02/19/19 07:54 Oxygen Delivery Method Room Air Weight: 71.1 kg Body Mass Index (BMI) 25.2 Finger Stick Blood Glucose 121 Intake and Output for Last 24 Hours 02/17/19 02/18/19 02/19/19 23:59 23:59 23:59 Intake Total 60 / 60 Balance 60 / 60 General: Alert, Cooperative, No apparent distress HEENT: PERRLA, EOMI Neurological: Cranial nerves II-XII grossly intact, Motor Exam 5/5 strength throughout, - - exam shows minimal rue discoord, primary finding is bradyphrenia Psych/Mental Status: Normal Affect Laboratory Results 02/18/19 17:03: WBC 10.4, RBC 4.90, Hgb 14.5, Hct 44.4, MCV 90.6, MCH 29.6, MCHC 32.7, RDW Std Deviation 46.0 H, RDW Coeff of [place] 13.7, Plt Count 256, MPV 9.8, Immature Gran % (Auto) 0.400, Neut % (Auto) 59.8, Lymph % (Auto) 28.6, [place] % (Auto) 8.9, Eos % (Auto) 1.9, Baso % (Auto) 0.4, Absolute Neuts (auto) 6.2, Absolute Lymphs (auto) 2.97, Nucleated RBC % 0 02/18/19 17:03: PT 12.9, INR 1.0, APTT 30.2 02/18/19 17:03: Sodium 138, Potassium 4.8, Chloride 104, Carbon Dioxide 28.0, Anion Gap 6, BUN 24 H, Creatinine 1.30 H, Estim Creat Clear Calc 28.99, Est GFR (MDRD) Af Amer 50 L, Est GFR (MDRD) Non-Af 41 L, BUN/Creatinine Ratio 18.5, Glucose 112 H, Calcium 9.5, Troponin I < 0.015 02/18/19 17:45: Urine Color Yellow, Urine Clarity Clear, Urine pH 5.0, Ur Specific [place] 1.025, Urine Protein 15 H, Urine Glucose (UA) Normal, Urine Ketones Negative, Urine Occult Blood 10 H, Urine Nitrite Negative, Urine Bilirubin Negative, Urine Urobilinogen Normal, Ur Leukocyte Esterase 25 H, Urine RBC 0 SEEN, Urine WBC 0-5 SEEN, Ur Squamous Epith Cells 0 SEEN, Urine Bacteria 0 SEEN, Hyaline Casts 0-5 SEEN, Urine Mucus RARE 02/19/19 07:10: WBC 8.9, RBC 4.72, Hgb 13.8, Hct 42.7, MCV 90.5, MCH 29.2, MCHC 32.3, RDW Std Deviation 44.5 H, RDW Coeff of [place] 13.3, Plt Count 238, MPV 9.7, Immature Gran % (Auto) 0.200, Neut % (Auto) 49.9, Lymph % (Auto) 36.8, [place] % (Auto) 9.1, Eos % (Auto) 3.2, Baso % (Auto) 0.8, Absolute Neuts (auto) 4.5, Absolute Lymphs (auto) 3.29, Nucleated RBC % 0 02/19/19 07:10: Sodium 135 L, Potassium 3.9, Chloride 103, Carbon Dioxide 27.0, Anion Gap 5, BUN 17, Creatinine 0.85, Estim Creat Clear Calc 46.12, Est GFR (MDRD) Af Amer 81, Est GFR (MDRD) Non-Af 67, BUN/Creatinine Ratio 19.9, Glucose 115 H, Calcium 8.5, Triglycerides 176, Cholesterol 221 H, LDL Cholesterol 153 H, VLDL Cholesterol 35, HDL Cholesterol 33 L, TSH 3.18 Current Medications Aspirin (Aspirin, Baby) 81 mg PO DAILY@0800 [facility] Last Admin: 02/19/19 10:22 Dose: 81 mg Documented by: Bupropion HCl (Wellbutrin Tablets) 75 mg PO DAILY [facility] Last Admin: 02/19/19 10:22 Dose: 75 mg Documented by: Carvedilol (Coreg) 25 mg PO DAILY [facility] Last Admin: 02/19/19 10:38 Dose: Not Given Documented by: Dextrose (D50w Syringe) 0 gm IV X1 PRN; Protocol PRN Reason: Hypoglycemia Enoxaparin Sodium (Lovenox) 30 mg SC DAILY@1000 [facility] Last Admin: 02/19/19 10:22 Dose: 30 mg Documented by: Escitalopram Oxalate (Lexapro) 20 mg PO DAILY [facility] Last Admin: 02/19/19 10:22 Dose: 20 mg Documented by: Glucagon () 1 mg IM .X1 PRN PRN Reason: Hypoglycemia Hydralazine HCl (Apresoline Iv) 10 mg IV Q6H PRN PRN PRN Reason: BLOOD PRESSURE ELEVATION Levothyroxine Sodium (Synthroid) 75 mcg PO DAILY@0600 [facility] Last Admin: 02/19/19 05:25 Dose: 75 mcg Documented by: Lisinopril (Zestril) 40 mg PO DAILY [facility] Last Admin: 02/19/19 10:38 Dose: Not Given Documented by: Assessment/Plan All Active Problems Anxiety (Acute) GERD (gastroesophageal reflux disease) (Acute) Bradycardia (Acute) acute/subacute left small vessel infarcts, left putamen and left thalamus (mri reviewed) likely small vessel disease. based on baseline cognition, inpt rehab would not be recommended, pt/ot, home would be best option if able to return safely, otherwise snf asa bp control speech therapy statin
--- NOTE | 2019-02-19 12:16 | CASEMGMT ---
Assessment- SW did not talk with patient as she has Dementia and she is more confused than normal. SW called patient's son, Dion Fung. He is patient's Healthcare POA. He agreed to answer SW's questions. Living situation- Patient lives with her granddaughter Elizabeth Fung and her son. (Elizabeth is Dion's daughter) The home is 1 level and there are a few entry steps. PCP: Dr Colvin Specialists: Dr Alan-Neurology Pharmacy: [facility] DME: built in shower bench ADL's/IADL's: Per son patient usually bathes herself, she can dress herself. She can heat things up in the microwave. They manage her medications and drive her places. She normally does not use any assistive device. Past SNF/rehab: None Past HH: None LW: Yes and on file at [facility] POA: Yes and on file at [facility] Dion said patient normally is not left alone much at all. His sits with her 4 days a week (-) for about 12 hours. Occasionally she may be alone for a little while on Saturdays or Sundays, but not for very long. He said patient has done really well until the other day. She could not do any of the things she normally can do. ZABRINA asked if therapy and physician were recommending half-way placement for rehab would family be open to this. He said she really would not like it. They would have to convince him it would really be helpful for her to go somewhere. He will be coming in later today. ZABRINA will print a list of in network SNF's and home health agencies and give to family. Plan: Pending therapy evals and family's decision Key AVALOS ALARM SIGNALER
--- NOTE | 2019-02-19 14:33 | PCM.PROGNOTE ---
<Any Padilla - Last Filed: 02/19/19 14:57> Subjective: Patient seen and examined. Patient having difficulty finding words. Unable to provide responses to questioning. Son at bedside states patient has underlying dementia however this is a significant decline compared to her baseline. Son agreeable to SNF at discharge for further therapy. - Physical Exam Vitals/I&O's: Vital Signs Temp Pulse Resp BP Pulse Ox 98.3 F 66 16 143/78 H 98 02/19/19 11:54 02/19/19 11:54 02/19/19 11:54 02/19/19 11:54 02/19/19 11:54 Oxygen Delivery Method Room Air Weight: 156 lb 11.979 oz Body Mass Index (BMI) 25.2 Finger Stick Blood Glucose 121 Intake and Output for Last 24 Hours 02/17/19 02/18/19 02/19/19 23:59 23:59 23:59 Intake Total 300 / 300 Balance 300 / 300 General: Alert, Cooperative, No apparent distress HEENT: Atraumatic, PERRLA, EOMI, Normocephalic Neck: Supple, No JVD, Negative Carotid Bruits Lungs: Clear to auscultation, Normal air movement Cardiovascular: Regular rate, Regular Rhythm, Normal S1, Normal S2, No murmurs Abdomen: Bowel Sounds Present, Soft, Non Tender, Non-Distended Extremities: No clubbing, No cyanosis, No edema, Capillary Refill Less than 3 Seconds Skin: No rashes, No breakdown Musculoskeletal: No Tenderness to Palpation of Joints or Extremities Neurological: Cranial nerves II-XII grossly intact, Neuro grossly intact Psych/Mental Status: Normal Affect, Appropriate Laboratory Results 02/18/19 17:03: WBC 10.4, RBC 4.90, Hgb 14.5, Hct 44.4, MCV 90.6, MCH 29.6, MCHC 32.7, RDW Std Deviation 46.0 H, RDW Coeff of Cirilo 13.7, Plt Count 256, MPV 9.8, Immature Gran % (Auto) 0.400, Neut % (Auto) 59.8, Lymph % (Auto) 28.6, [place] % (Auto) 8.9, Eos % (Auto) 1.9, Baso % (Auto) 0.4, Absolute Neuts (auto) 6.2, Absolute Lymphs (auto) 2.97, Nucleated RBC % 0 02/18/19 17:03: PT 12.9, INR 1.0, APTT 30.2 02/18/19 17:03: Sodium 138, Potassium 4.8, Chloride 104, Carbon Dioxide 28.0, Anion Gap 6, BUN 24 H, Creatinine 1.30 H, Estim Creat Clear Calc 28.99, Est GFR (MDRD) Af Amer 50 L, Est GFR (MDRD) Non-Af 41 L, BUN/Creatinine Ratio 18.5, Glucose 112 H, Calcium 9.5, Troponin I < 0.015 02/18/19 17:45: Urine Color Yellow, Urine Clarity Clear, Urine pH 5.0, Ur Specific [place] 1.025, Urine Protein 15 H, Urine Glucose (UA) Normal, Urine Ketones Negative, Urine Occult Blood 10 H, Urine Nitrite Negative, Urine Bilirubin Negative, Urine Urobilinogen Normal, Ur Leukocyte Esterase 25 H, Urine RBC 0 SEEN, Urine WBC 0-5 SEEN, Ur Squamous Epith Cells 0 SEEN, Urine Bacteria 0 SEEN, Hyaline Casts 0-5 SEEN, Urine Mucus RARE 02/19/19 07:10: WBC 8.9, RBC 4.72, Hgb 13.8, Hct 42.7, MCV 90.5, MCH 29.2, MCHC 32.3, RDW Std Deviation 44.5 H, RDW Coeff of Cirilo 13.3, Plt Count 238, MPV 9.7, Immature Gran % (Auto) 0.200, Neut % (Auto) 49.9, Lymph % (Auto) 36.8, [place] % (Auto) 9.1, Eos % (Auto) 3.2, Baso % (Auto) 0.8, Absolute Neuts (auto) 4.5, Absolute Lymphs (auto) 3.29, Nucleated RBC % 0 02/19/19 07:10: Sodium 135 L, Potassium 3.9, Chloride 103, Carbon Dioxide 27.0, Anion Gap 5, BUN 17, Creatinine 0.85, Estim Creat Clear Calc 46.12, Est GFR (MDRD) Af Amer 81, Est GFR (MDRD) Non-Af 67, BUN/Creatinine Ratio 19.9, Glucose 115 H, Calcium 8.5, Triglycerides 176, Cholesterol 221 H, LDL Cholesterol 153 H, VLDL Cholesterol 35, HDL Cholesterol 33 L, TSH 3.18 Current Medications Aspirin (Aspirin, Baby) 81 mg PO DAILY@0800 [facility] Last Admin: 02/19/19 10:22 Dose: 81 mg Documented by: Atorvastatin Calcium (Lipitor) 40 mg PO QHS [facility] Bupropion HCl (Wellbutrin Tablets) 75 mg PO DAILY [facility] Last Admin: 02/19/19 10:22 Dose: 75 mg Documented by: Carvedilol (Coreg) 12.5 mg PO DAILY [facility] Dextrose (D50w Syringe) 0 gm IV X1 PRN; Protocol PRN Reason: Hypoglycemia Enoxaparin Sodium (Lovenox) 30 mg SC DAILY@1000 [facility] Last Admin: 02/19/19 10:22 Dose: 30 mg Documented by: Escitalopram Oxalate (Lexapro) 20 mg PO DAILY [facility] Last Admin: 02/19/19 10:22 Dose: 20 mg Documented by: Glucagon () 1 mg IM .X1 PRN PRN Reason: Hypoglycemia Hydralazine HCl (Apresoline Iv) 10 mg IV Q6H PRN PRN PRN Reason: BLOOD PRESSURE ELEVATION Levothyroxine Sodium (Synthroid) 75 mcg PO DAILY@0600 [facility] Last Admin: 02/19/19 05:25 Dose: 75 mcg Documented by: Lisinopril (Zestril) 10 mg PO DAILY [facility] Medical Necessity - Tobacco Use Smoking Status: Former smoker Tobacco Use: Non-smoker Assessment/Plan All Active Problems Anxiety (Acute) GERD (gastroesophageal reflux disease) (Acute) Bradycardia (Acute) 1. 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 Head and neck CTA with mild atherosclerotic changes. Echocardiogram demonstrates an EF of 65%, stage I diastolic dysfunction. PT/OT/ST. Continue aspirin, statin. 2. Hypertension-stable, continue home carvedilol, lisinopril regimen. 3. Hypothyroidism-continue Synthroid regimen. 4. AMY 5. GERD-not on regimen. 6. Anxiety/depression-continue home bupropion, escitalopram regimen. 7. Dementia- follows with Dr. Alan. Patient's son reports dementia has been progressively worsening. DVT prophylaxis-Lovenox subcu Discharge planning: SNF pending pre-CERT. This patient was seen by VICENTE Ivan under the supervision of Dr. Fernandez. <Meño Fernandez - Last Filed: 02/19/19 15:16> Subjective: Seen and examined. Patient takes time in answering the question. Difficulty in understanding/finding word increased time to respond. Patient has dementia. Patient also had fall and bruise over the nose. Her gait is unsteady. - Physical Exam Vitals/I&O's: Vital Signs Temp Pulse Resp BP Pulse Ox 98.3 F 66 16 143/78 H 98 02/19/19 11:54 02/19/19 11:54 02/19/19 11:54 02/19/19 11:54 02/19/19 11:54 Oxygen Delivery Method Room Air Weight: 156 lb 11.979 oz Body Mass Index (BMI) 25.2 Finger Stick Blood Glucose 121 Intake and Output for Last 24 Hours 02/17/19 02/18/19 02/19/19 23:59 23:59 23:59 Intake Total 300 / 300 Balance 300 / 300 General: Alert HEENT: Atraumatic, PERRLA, EOMI, Normocephalic Oral: - Neck: Supple, No JVD, Negative Carotid Bruits Lungs: Clear to auscultation, Normal air movement, No rhonchi, No wheeze, No rales Cardiovascular: Regular rate, Regular Rhythm, Normal S2, No murmurs Abdomen: Bowel Sounds Present, Soft, Non Tender, Non-Distended Extremities: No edema, Capillary Refill Less than 3 Seconds Skin: No rashes, No breakdown Musculoskeletal: No Tenderness to Palpation of Joints or Extremities, Arthritic Changes Neurological: Cranial nerves II-XII grossly intact, Neuro grossly intact, Motor Exam 5/5 strength throughout Psych/Mental Status: Normal Affect, Appropriate Laboratory Results 02/18/19 17:03: WBC 10.4, RBC 4.90, Hgb 14.5, Hct 44.4, MCV 90.6, MCH 29.6, MCHC 32.7, RDW Std Deviation 46.0 H, RDW Coeff of Cirilo 13.7, Plt Count 256, MPV 9.8, Immature Gran % (Auto) 0.400, Neut % (Auto) 59.8, Lymph % (Auto) 28.6, [place] % (Auto) 8.9, Eos % (Auto) 1.9, Baso % (Auto) 0.4, Absolute Neuts (auto) 6.2, Absolute Lymphs (auto) 2.97, Nucleated RBC % 0 02/18/19 17:03: PT 12.9, INR 1.0, APTT 30.2 02/18/19 17:03: Sodium 138, Potassium 4.8, Chloride 104, Carbon Dioxide 28.0, Anion Gap 6, BUN 24 H, Creatinine 1.30 H, Estim Creat Clear Calc 28.99, Est GFR (MDRD) Af Amer 50 L, Est GFR (MDRD) Non-Af 41 L, BUN/Creatinine Ratio 18.5, Glucose 112 H, Calcium 9.5, Troponin I < 0.015 02/18/19 17:45: Urine Color Yellow, Urine Clarity Clear, Urine pH 5.0, Ur Specific [place] 1.025, Urine Protein 15 H, Urine Glucose (UA) Normal, Urine Ketones Negative, Urine Occult Blood 10 H, Urine Nitrite Negative, Urine Bilirubin Negative, Urine Urobilinogen Normal, Ur Leukocyte Esterase 25 H, Urine RBC 0 SEEN, Urine WBC 0-5 SEEN, Ur Squamous Epith Cells 0 SEEN, Urine Bacteria 0 SEEN, Hyaline Casts 0-5 SEEN, Urine Mucus RARE 02/19/19 07:10: WBC 8.9, RBC 4.72, Hgb 13.8, Hct 42.7, MCV 90.5, MCH 29.2, MCHC 32.3, RDW Std Deviation 44.5 H, RDW Coeff of Cirilo 13.3, Plt Count 238, MPV 9.7, Immature Gran % (Auto) 0.200, Neut % (Auto) 49.9, Lymph % (Auto) 36.8, [place] % (Auto) 9.1, Eos % (Auto) 3.2, Baso % (Auto) 0.8, Absolute Neuts (auto) 4.5, Absolute Lymphs (auto) 3.29, Nucleated RBC % 0 02/19/19 07:10: Sodium 135 L, Potassium 3.9, Chloride 103, Carbon Dioxide 27.0, Anion Gap 5, BUN 17, Creatinine 0.85, Estim Creat Clear Calc 46.12, Est GFR (MDRD) Af Amer 81, Est GFR (MDRD) Non-Af 67, BUN/Creatinine Ratio 19.9, Glucose 115 H, Calcium 8.5, Triglycerides 176, Cholesterol 221 H, LDL Cholesterol 153 H, VLDL Cholesterol 35, HDL Cholesterol 33 L, TSH 3.18 Current Medications Aspirin (Aspirin, Baby) 81 mg PO DAILY@0800 [facility] Last Admin: 02/19/19 10:22 Dose: 81 mg Documented by: Atorvastatin Calcium (Lipitor) 40 mg PO QHS [facility] Bupropion HCl (Wellbutrin Tablets) 75 mg PO DAILY [facility] Last Admin: 02/19/19 10:22 Dose: 75 mg Documented by: Carvedilol (Coreg) 12.5 mg PO DAILY [facility] Dextrose (D50w Syringe) 0 gm IV X1 PRN; Protocol PRN Reason: Hypoglycemia Enoxaparin Sodium (Lovenox) 30 mg SC DAILY@1000 [facility] Last Admin: 02/19/19 10:22 Dose: 30 mg Documented by: Escitalopram Oxalate (Lexapro) 20 mg PO DAILY [facility] Last Admin: 02/19/19 10:22 Dose: 20 mg Documented by: Glucagon () 1 mg IM .X1 PRN PRN Reason: Hypoglycemia Hydralazine HCl (Apresoline Iv) 10 mg IV Q6H PRN PRN PRN Reason: BLOOD PRESSURE ELEVATION Levothyroxine Sodium (Synthroid) 75 mcg PO DAILY@0600 [facility] Last Admin: 02/19/19 05:25 Dose: 75 mcg Documented by: Lisinopril (Zestril) 10 mg PO DAILY [facility] Assessment/Plan This patient was seen in conjunction with Any CHILDS. I have independently interviewed and examined the patient and reviewed pertinent history, examination findings, laboratory and plan of management. I have reviewed the note and agree with the documented findings with the few additional points. In brief, patient is admitted for altered mental status and generalized weakness and fall. Patient also has difficulty with his speech, finding words and increased reaction time. Also decline in functional ability and memory recently more than her baseline dementia. MRI brain reported 2 1 cm late subacute infarct over left thalamus and putamen. Head and neck CTA shows mild calcified arthritic changes but no significant stenosis or aneurysm. CT C-spine multilevel degenerative changes. Echo EF 65% with a stage I diastolic dysfunction. Patient on PT OT and speech evaluation. On aspirin and statin. LDL elevated 153, total cholesterol 221. TSH normal Patient seen by neurologist. Because of dementia and baseline cognitive deficit inpatient acute rehab not recommended. Discharge plan SNF. I have discussed my assessment with Any CHILDS and orders have been reviewed. Clinical Impression(s) from Imaging Studies Brain CT 10/24/19 17:04 IMPRESSION: No acute intracranial abnormality. Chronic ischemic and atrophic changes. Cervical Spine CT 02/18/19 17:04 IMPRESSION: Multilevel degenerative changes, as described above. There is no evidence of fracture or subluxation. Chest X-Ray 02/18/19 17:04 IMPRESSION: Pulmonary vascular prominence without radha edema. No consolidation. Head/Neck CTA 02/19/19 05:55 IMPRESSION: CTA head: Mild calcified atherosclerotic changes as described above, with no evidence of significant stenosis or aneurysm. CTA NECK:. Mild calcified atherosclerotic changes as described above with no evidence of hemodynamically high-grade stenosis. Brain MRI 02/19/19 07:00 IMPRESSION: Two 1 cm late subacute infarcts of the left thalamus and putamen. Laboratory Results Triglycerides 176, Cholesterol 221 H, LDL Cholesterol 153 H, VLDL Cholesterol 35, HDL Cholesterol 33 L, TSH 3.18 Code Visit Inpatient E&M: 74618 Subs Hosp L3
--- NOTE | 2019-02-19 16:09 | CASEMGMT ---
Patient's son came to [facility] and he agreed patient should go to a fdc for rehab. SW gave him a list of SNF's that are in network with patient's insurance. He will look over them and leave a message for SW. ZABRINA gave him SW's card. Plan: Placement pending family's facility choice and insurance approval Key NICKERSON
[2019-02-19] MEDS: Atorvastatin Calcium 80 MG Tablet PO (21:40)
[2019-02-20] VITALS (13 sets, daily range): BP systolic 115–177; BP diastolic 57–89; PULSE 59–90; RESP 15–18; TEMP 36.6–37.1; O2SAT 95–98; BMI 25.2
[2019-02-20] MEDS: Levothyroxine 75 MCG Tablet PO (05:08)
[2019-02-20] MEDS: Escitalopram Oxalate 20 MG Tablet PO (09:09)
[2019-02-20] MEDS: Enoxaparin 30 MG/0.3 ML Syringe SC (09:09)
[2019-02-20] MEDS: Aspirin 81 MG TAB.CHEW PO (09:09)
[2019-02-20] MEDS: Carvedilol 12.5 MG Tablet PO (09:09)
[2019-02-20] MEDS: buPROPion 75 MG Tablet PO (09:10)
[2019-02-20] MEDS: Lisinopril 10 MG Tablet PO (09:10)
--- NOTE | 2019-02-20 13:08 | PN_ITS ---
Subjective: Patient seen and examined. No acute events overnight. SNF pending pre-cert. - Physical Exam Vitals/I&O's: Vital Signs Temp Pulse Resp BP Pulse Ox 97.8 F 60 15 115/57 L 96 02/20/19 12:46 02/20/19 12:46 02/20/19 12:46 02/20/19 12:46 02/20/19 12:46 Oxygen Delivery Method Room Air Weight: 156 lb 11.979 oz Body Mass Index (BMI) 25.2 Finger Stick Blood Glucose 121 Intake and Output for Last 24 Hours 02/18/19 02/19/19 02/20/19 23:59 23:59 23:59 Intake Total 540 / 540 525 / 525 Balance 540 / 540 525 / 525 General: Alert, Cooperative, No apparent distress HEENT: Atraumatic, PERRLA, EOMI, Normocephalic Neck: Supple, No JVD, Negative Carotid Bruits Lungs: Clear to auscultation, Normal air movement Cardiovascular: Regular rate, Regular Rhythm, Normal S1, Normal S2, No murmurs Abdomen: Bowel Sounds Present, Soft, Non Tender, Non-Distended Extremities: No clubbing, No cyanosis, No edema, Capillary Refill Less than 3 Seconds Skin: No rashes, No breakdown Musculoskeletal: No Tenderness to Palpation of Joints or Extremities Neurological: Cranial nerves II-XII grossly intact, Neuro grossly intact Psych/Mental Status: Normal Affect, Appropriate Current Medications Aspirin (Aspirin, Baby) 81 mg PO DAILY@0800 [facility] Last Admin: 02/20/19 09:09 Dose: 81 mg Documented by: Atorvastatin Calcium (Lipitor) 80 mg PO QHS [facility] Last Admin: 02/19/19 21:40 Dose: 80 mg Documented by: Bupropion HCl (Wellbutrin Tablets) 75 mg PO DAILY [facility] Last Admin: 02/20/19 09:10 Dose: 75 mg Documented by: Carvedilol (Coreg) 12.5 mg PO DAILY [facility] Last Admin: 02/20/19 09:09 Dose: 12.5 mg Documented by: Dextrose (D50w Syringe) 0 gm IV X1 PRN; Protocol PRN Reason: Hypoglycemia Enoxaparin Sodium (Lovenox) 30 mg SC DAILY@1000 [facility] Last Admin: 02/20/19 09:09 Dose: 30 mg Documented by: Escitalopram Oxalate (Lexapro) 20 mg PO DAILY [facility] Last Admin: 02/20/19 09:09 Dose: 20 mg Documented by: Glucagon () 1 mg IM .X1 PRN PRN Reason: Hypoglycemia Hydralazine HCl (Apresoline Iv) 10 mg IV Q6H PRN PRN PRN Reason: BLOOD PRESSURE ELEVATION Levothyroxine Sodium (Synthroid) 75 mcg PO DAILY@0600 [facility] Last Admin: 02/20/19 05:08 Dose: 75 mcg Documented by: Lisinopril (Zestril) 10 mg PO DAILY [facility] Last Admin: 02/20/19 09:10 Dose: 10 mg Documented by: Medical Necessity - Tobacco Use Smoking Status: Unknown if ever smoked Tobacco Use: Non-smoker Assessment/Plan All Active Problems Anxiety (Acute) GERD (gastroesophageal reflux disease) (Acute) Bradycardia (Acute) 1. 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 Head and neck CTA with mild atherosclerotic changes. Echocardiogram demonstrates an EF of 65%, stage I diastolic dysfunction. PT/OT/ST. Continue aspirin, statin. 2. Hypertension-stable, continue home carvedilol, lisinopril regimen. 3. Hypothyroidism-continue Synthroid regimen. 4. AMY 5. GERD-not on regimen. 6. Anxiety/depression-continue home bupropion, escitalopram regimen. 7. Dementia- follows with Dr. Alan. Patient's son reports dementia has been progressively worsening. DVT prophylaxis-Lovenox subcu Discharge planning: SNF pending pre-cert. This patient was seen by VICENTE Ivan under the supervision of Dr. Peralta.
--- NOTE | 2019-02-20 14:47 | NURSING ---
This nurse reviewed charting of SN Zahira
--- NOTE | 2019-02-20 14:54 | NURSING ---
pt BP 132/72 ROCKY Morales Notified.
[2019-02-20] MEDS: Atorvastatin Calcium 80 MG Tablet PO (21:23)
[2019-02-21] VITALS (14 sets, daily range): BP systolic 103–164; BP diastolic 44–86; PULSE 62–78; RESP 14–18; TEMP 36.4–36.9; O2SAT 94–96; BMI 25.2
[2019-02-21] MEDS: Levothyroxine 75 MCG Tablet PO (05:25)
[2019-02-21] MEDS: buPROPion 75 MG Tablet PO (08:50)
[2019-02-21] MEDS: Carvedilol 12.5 MG Tablet PO (08:50)
[2019-02-21] MEDS: Escitalopram Oxalate 20 MG Tablet PO (08:50)
[2019-02-21] MEDS: Aspirin 81 MG TAB.CHEW PO (08:50)
[2019-02-21] MEDS: Enoxaparin 30 MG/0.3 ML Syringe SC (08:50)
[2019-02-21] MEDS: Lisinopril 10 MG Tablet PO (08:51)
--- NOTE | 2019-02-21 09:51 | PCM.PROGNOTE ---
Subjective: Patient seen and examined. Resting comfortably in bed. No acute events overnight. - Physical Exam Vitals/I&O's: Vital Signs Temp Pulse Resp BP Pulse Ox 98.1 F 76 15 153/72 H 96 02/21/19 08:41 02/21/19 08:41 02/21/19 08:41 02/21/19 08:41 02/21/19 08:41 Oxygen Delivery Method Room Air Weight: 156 lb 11.979 oz Body Mass Index (BMI) 25.2 Finger Stick Blood Glucose 121 Intake and Output for Last 24 Hours 02/19/19 02/20/19 02/21/19 23:59 23:59 23:59 Intake Total 540 / 540 1075 / 1075 Balance 540 / 540 1075 / 1075 General: Alert, Cooperative, No apparent distress HEENT: Atraumatic, PERRLA, EOMI, Normocephalic Neck: Supple, No JVD, Negative Carotid Bruits Lungs: Clear to auscultation, Normal air movement Cardiovascular: Regular rate, Regular Rhythm, Normal S1, Normal S2, No murmurs Abdomen: Bowel Sounds Present, Soft, Non Tender, Non-Distended Extremities: No clubbing, No cyanosis, No edema, Capillary Refill Less than 3 Seconds Skin: No rashes, No breakdown Musculoskeletal: No Tenderness to Palpation of Joints or Extremities Neurological: Cranial nerves II-XII grossly intact, Neuro grossly intact Psych/Mental Status: Normal Affect, Appropriate Current Medications Aspirin (Aspirin, Baby) 81 mg PO DAILY@0800 [facility] Last Admin: 02/21/19 08:50 Dose: 81 mg Documented by: Atorvastatin Calcium (Lipitor) 80 mg PO QHS [facility] Last Admin: 02/20/19 21:23 Dose: 80 mg Documented by: Bupropion HCl (Wellbutrin Tablets) 75 mg PO DAILY [facility] Last Admin: 02/21/19 08:50 Dose: 75 mg Documented by: Carvedilol (Coreg) 12.5 mg PO DAILY [facility] Last Admin: 02/21/19 08:50 Dose: 12.5 mg Documented by: Dextrose (D50w Syringe) 0 gm IV X1 PRN; Protocol PRN Reason: Hypoglycemia Enoxaparin Sodium (Lovenox) 30 mg SC DAILY@1000 [facility] Last Admin: 02/21/19 08:50 Dose: 30 mg Documented by: Escitalopram Oxalate (Lexapro) 20 mg PO DAILY [facility] Last Admin: 02/21/19 08:50 Dose: 20 mg Documented by: Glucagon () 1 mg IM .X1 PRN PRN Reason: Hypoglycemia Hydralazine HCl (Apresoline Iv) 10 mg IV Q6H PRN PRN PRN Reason: BLOOD PRESSURE ELEVATION Levothyroxine Sodium (Synthroid) 75 mcg PO DAILY@0600 [facility] Last Admin: 02/21/19 05:25 Dose: 75 mcg Documented by: Lisinopril (Zestril) 10 mg PO DAILY [facility] Last Admin: 02/21/19 08:51 Dose: 10 mg Documented by: Medical Necessity - Tobacco Use Smoking Status: Unknown if ever smoked Tobacco Use: Non-smoker Assessment/Plan All Active Problems Anxiety (Acute) GERD (gastroesophageal reflux disease) (Acute) Bradycardia (Acute) 1. 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 Head and neck CTA with mild atherosclerotic changes. Echocardiogram demonstrates an EF of 65%, stage I diastolic dysfunction. PT/OT/ST. Continue aspirin, statin. 2. Hypertension-stable, continue home carvedilol, lisinopril regimen. 3. Hypothyroidism-continue Synthroid regimen. 4. AMY 5. GERD-not on regimen. 6. Anxiety/depression-continue home bupropion, escitalopram regimen. 7. Dementia- follows with Dr. Alan. Patient's son reports dementia has been progressively worsening. DVT prophylaxis-Lovenox subcu Discharge planning: SNF pending pre-cert. This patient was seen by VICENTE Ivan under the supervision of Dr. Peralta.
[2019-02-21] MEDS: Atorvastatin Calcium 80 MG Tablet PO (20:30)
[2019-02-22] VITALS (9 sets, daily range): BP systolic 123–165; BP diastolic 48–82; PULSE 62–116; RESP 14–18; TEMP 36.7–36.9; O2SAT 94–97; BMI 25.2
[2019-02-22] MEDS: Levothyroxine 75 MCG Tablet PO (06:39)
[2019-02-22] MEDS: Aspirin 81 MG TAB.CHEW PO (08:40)
[2019-02-22] MEDS: Escitalopram Oxalate 20 MG Tablet PO (11:05)
[2019-02-22] MEDS: Enoxaparin 30 MG/0.3 ML Syringe SC (11:05)
[2019-02-22] MEDS: Carvedilol 12.5 MG Tablet PO (11:05)
[2019-02-22] MEDS: Lisinopril 10 MG Tablet PO (11:06)
[2019-02-22] MEDS: buPROPion 75 MG Tablet PO (11:06)
--- NOTE | 2019-02-22 11:27 | PN_ITS ---
Subjective: Patient seen and examined. Resting in chair. No acute events overnight. Denies current complaints. - Physical Exam Vitals/I&O's: Vital Signs Temp Pulse Resp BP Pulse Ox 98.1 F 65 18 155/82 H 95 02/22/19 08:22 02/22/19 08:22 02/22/19 08:22 02/22/19 08:22 02/22/19 08:22 Oxygen Delivery Method Room Air Weight: 156 lb 11.979 oz Body Mass Index (BMI) 25.2 Finger Stick Blood Glucose 121 Intake and Output for Last 24 Hours 02/20/19 02/21/19 02/22/19 23:59 23:59 23:59 Intake Total 1075 / 1075 480 / 720 490 / 490 Balance 1075 / 1075 480 / 720 490 / 490 General: Alert, Oriented x3, Cooperative HEENT: Atraumatic, PERRLA, EOMI, Normocephalic Neck: Supple, No JVD, Negative Carotid Bruits Lungs: Clear to auscultation, Normal air movement Cardiovascular: Regular rate, Regular Rhythm, Normal S1, Normal S2, No murmurs Abdomen: Bowel Sounds Present, Soft, Non Tender, Non-Distended Extremities: No clubbing, No cyanosis, No edema, Capillary Refill Less than 3 Seconds Skin: No rashes, No breakdown Musculoskeletal: No Tenderness to Palpation of Joints or Extremities Neurological: Cranial nerves II-XII grossly intact, Neuro grossly intact Psych/Mental Status: Normal Affect, Appropriate Current Medications Aspirin (Aspirin, Baby) 81 mg PO DAILY@0800 [facility] Last Admin: 02/22/19 08:40 Dose: 81 mg Documented by: Atorvastatin Calcium (Lipitor) 80 mg PO QHS [facility] Last Admin: 02/21/19 20:30 Dose: 80 mg Documented by: Bupropion HCl (Wellbutrin Tablets) 75 mg PO DAILY [facility] Last Admin: 02/22/19 11:06 Dose: 75 mg Documented by: Carvedilol (Coreg) 12.5 mg PO DAILY [facility] Last Admin: 02/22/19 11:05 Dose: 12.5 mg Documented by: Dextrose (D50w Syringe) 0 gm IV X1 PRN; Protocol PRN Reason: Hypoglycemia Enoxaparin Sodium (Lovenox) 30 mg SC DAILY@1000 [facility] Last Admin: 02/22/19 11:05 Dose: 30 mg Documented by: Escitalopram Oxalate (Lexapro) 20 mg PO DAILY [facility] Last Admin: 02/22/19 11:05 Dose: 20 mg Documented by: Glucagon () 1 mg IM .X1 PRN PRN Reason: Hypoglycemia Hydralazine HCl (Apresoline Iv) 10 mg IV Q6H PRN PRN PRN Reason: BLOOD PRESSURE ELEVATION Levothyroxine Sodium (Synthroid) 75 mcg PO DAILY@0600 [facility] Last Admin: 02/22/19 06:39 Dose: 75 mcg Documented by: Lisinopril (Zestril) 10 mg PO DAILY [facility] Last Admin: 02/22/19 11:06 Dose: 10 mg Documented by: Medical Necessity - Tobacco Use Smoking Status: Unknown if ever smoked Tobacco Use: Non-smoker Assessment/Plan All Active Problems Anxiety (Acute) GERD (gastroesophageal reflux disease) (Acute) Bradycardia (Acute) 1. 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 Head and neck CTA with mild atherosclerotic changes. Echocardiogram demonstrates an EF of 65%, stage I diastolic dysfunction. PT/OT/ST. Continue aspirin, statin. 2. Hypertension-stable, continue home carvedilol, lisinopril regimen. 3. Hypothyroidism-continue Synthroid regimen. 4. AMY 5. GERD-not on regimen. 6. Anxiety/depression-continue home bupropion, escitalopram regimen. 7. Dementia- follows with Dr. Alan. Patient's son reports dementia has been progressively worsening. DVT prophylaxis-Lovenox subcu Discharge planning: SNF pending pre-cert. This patient was seen by VICENTE Ivan under the supervision of Dr. Peralta.
--- NOTE | 2019-02-22 13:10 | CASEMGMT ---
ZABRINA received a call from patient's son. He asked if SW knew what was going on with patient. SW asked if he still wanted her to go to a intermediate. He said that was the plan, however over the weekend nursing told him that she is doing too well to go to a SNF. SW told him that, it is always possible insurance could deny intermediate, but we do not know until we try. She did fairly well with therapy the one day and then the next she only walked 60'. He said the first choice would be [facility] and second would be [facility]. ZABRINA explained that SW will now make a referral to [facility]. They will let SW know if they can accept her and if they can they will work on getting approval from insurance. ZABRINA told him that we would not get an answer today and that she would stay in the hospital until we did get an answer. He thanked ZABRINA for the information. ZABRINA called Pamela at [facility] with referral and also faxed over information. Pamela did call SW back and state they can take patient and she will start the pre-cert. Plan: [facility] pending insurance approval. Key AVALOS MSW
--- NOTE | 2019-02-22 14:03 | CHAPLAIN ---
Type of Pastoral Visit _x__ Initial Visit ___ Follow-up Visit ___ On-call Visit ___ General Patient Visit ___ Spiritual Assessment ___ Family Conference ___ Bereavement ___ Rapid Response ___ Code Blue ___ Other (describe below) Pastoral Care Referral From _x__ Patient ___ Family ___ Nurse ___ Physician ___ Post Acute Care Registered Nurse ___ Associate Field Service Engineer ___ Other (describe below) Sacrament/Intervention _x__ Active listening ___ Anointing ___ Anabaptist ___ Bereavement ___ Communion ___ Blanche exploration ___ ___ Life review _x__ Prayer ___ Reconciliation ___ Sacrament of Sick _x__ Supportive presence ___ Wedding ___ Other (describe below) Pastoral Comments
--- NOTE | 2019-02-22 15:35 | CASEMGMT ---
SW called patient's son and let him know [facility] can accept patient. ZABRINA explained we will just need to wait on insurance which may be tomorrow. SW will let him know. Plan: [facility] pending pre-cert Key AVALOS MSW
[2019-02-22] MEDS: Atorvastatin Calcium 80 MG Tablet PO (21:22)
[2019-02-23 00:18] VITALS: BP 142/53; PULSE 70; RESP 16; TEMP 36.7; O2SAT 95
[2019-02-23 04:45] VITALS: BP 154/59; PULSE 68; RESP 16; TEMP 36.8; O2SAT 95
[2019-02-23] MEDS: Levothyroxine 75 MCG Tablet PO (04:47)
[2019-02-23 08:44] VITALS: BP 117/80; PULSE 62; RESP 18; TEMP 37.4; O2SAT 96
[2019-02-23] MEDS: Enoxaparin 30 MG/0.3 ML Syringe SC (08:48)
[2019-02-23] MEDS: Lisinopril 10 MG Tablet PO (08:48)
[2019-02-23] MEDS: Aspirin 81 MG TAB.CHEW PO (08:48)
[2019-02-23] MEDS: Escitalopram Oxalate 20 MG Tablet PO (08:49)
[2019-02-23] MEDS: Carvedilol 12.5 MG Tablet PO (08:49)
[2019-02-23] MEDS: buPROPion 75 MG Tablet PO (08:49)
--- NOTE | 2019-02-23 13:26 | CASEMGMT ---
Patient was denied by insurance to go to a long-term. SW called patient's son and let him know this information. He asked why and SW told him they felt she was doing well enough with therapy that she can go home with home health. He asked how they go about that. SW told him that we can set that up. He had no preference for home health agency. He asked that SW call him when the discharge paperwork is completed. ROCKY Patel arranged [facility] for patient. Key AVALOS MSW
--- NOTE | 2019-02-23 13:38 | CASEMGMT ---
Per Chantel GERBER, pt was denied by [facility] for SNF placement at this time. Pt's son notified via phone by Chantel GERBER and son is agreeable to [facility] at this time. Per Chantel GERBER, son stated no preference on C at this time. Call to Kim at [facility] and she states that they are able to take pt at this time for RN, PT/OT/ST, Aide, and SW. Order placed in [facility] for all and Kim is aware that pt to be discharged today, voices understanding. Pt awaiting discharge at this time. SStaten ROCKY CM
--- NOTE | 2019-02-23 13:52 | DCINST_ITS ---
You will use the following diet at home:: No restrictions Discharge Activity: Return to Normal Activity Call your doctor if you observe: Shortness of breath, Dizziness, Fainting spells, Chest pain Allergies/Adverse Reactions: Allergies sulfamethoxazole [From ] Allergy (Verified 02/18/19 16:59) Unknown trimethoprim [From ] Allergy (Verified 02/18/19 16:59) Unknown venom-honey bee [bee venom (honey bee)] Allergy (Verified 02/18/19 16:59) Hives Medications to take at Discharge Aspirin [Aspirin, Baby] 81 mg PO DAILY@0800 12/26/15 Levothyroxine [Synthroid] 75 mcg PO DAILY 12/26/15 Lisinopril [Zestril] 40 mg PO DAILY 12/26/15 Bupropion HCl 75 mg PO DAILY 02/18/19 Carvedilol 25 mg PO DAILY 02/18/19 Escitalopram Oxalate 20 mg PO DAILY 02/18/19 Atorvastatin Calcium 40 mg PO QHS #30 tab 02/23/19 The following prescriptions were given: Atorvastatin Calcium 40 mg PO QHS #30 tab Transmission Status: Pending to [facility]/pharmacy #[id number] Primary Care Physician: Vaibhav Colvin MD [Primary Care Provider] - Please follow up with your Primary Care Physician in: 1 Week Test Results: Test results from this visit will be discussed in further detail at your follow- up appointment, if applicable. Please Follow Up With: Shawn Valencia MD When: 2-4 Weeks Proposed Discharge Date: 02/23/19
--- NOTE | 2019-02-23 13:54 | PCM.DC.SUM ---
Discharge Date and Diagnosis Date of Admission: 02/18/19 Date of Discharge: 02/23/19 - Primary Discharge Diagnosis 1. Acute/subacute left small vessel infarcts 2. Hypertension 3. Hypothyroidism 4. AMY 5. GERD 6. Anxiety/depression 7. Dementia - Secondary Discharge Diagnosis Chronic Problems Hypothyroidism (Chronic) Diastolic dysfunction (Chronic) LVH (left ventricular hypertrophy) (Chronic) HTN (hypertension) (Chronic) CVA (cerebral vascular accident) (Chronic) AMY (obstructive sleep apnea) (Chronic) Hospital Course and Treatment Imaging Results: Diagnostic Data Brain CT 02/18/19 17:04 IMPRESSION: No acute intracranial abnormality. Chronic ischemic and atrophic changes. Electronically Signed: Ricci Hays, at 17:23 EDT Tel , Service support , ADDENDUM: 02/18/19 1748 IMPRESSION: No acute intracranial abnormality. Chronic ischemic and atrophic changes. N.B. : The above information has been verbally conveyed by Ricci Hays to Dr. Elsie Stroud MD, on 02/18/2019 17:41:24 (ET). Electronically Signed: Ricci Hays, at 17:23 EDT Tel , Service support , Cervical Spine CT 02/18/19 17:04 IMPRESSION: Multilevel degenerative changes, as described above. There is no evidence of fracture or subluxation. Electronically Signed: Hai Grijalva MD at 17:50 EDT , Service support , Chest X-Ray 02/18/19 17:04 IMPRESSION: Pulmonary vascular prominence without radha edema. No consolidation. Electronically Signed: Ricci Hays, at 18:27 EDT Tel , Service support , Head/Neck CTA 02/19/19 05:55 IMPRESSION: CTA head: Mild calcified atherosclerotic changes as described above, with no evidence of significant stenosis or aneurysm. CTA NECK:. Mild calcified atherosclerotic changes as described above with no evidence of hemodynamically high-grade stenosis. Electronically Signed: Natalee Duong MD at 6:43 EDT , Service support , Brain MRI 02/19/19 07:00 IMPRESSION: Two 1 cm late subacute infarcts of the left thalamus and putamen. Electronically Signed: Blu Arana MD at 9:35 EDT Tel , Service support , ADDENDUM: 02/19/19 0949 IMPRESSION: Two 1 cm late subacute infarcts of the left thalamus and putamen. N.B. : The above information has been verbally conveyed by Blu Arana MD to Meñostuart Fernandez on 02/19/2019 09:42:16 (ET). Electronically Signed: Blu Arana MD at 9:35 EDT Tel , Service support , Dr. Valencia- neurology Operations: None Procedures: 2-D Echocardiogram Summary of Care Provided: The patient is a 83 year old F admitted 02/18/2019 due to altered mental status, weakness. 1. 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 Head and neck CTA with mild atherosclerotic changes. Echocardiogram demonstrates an EF of 65%, stage I diastolic dysfunction. Continue aspirin, statin. Unfortunately, patient was denied by insurance to go to SNF at discharge. She lives with her granddaughter and will have someone present with her in the home [id number]. She will be discharged home with home health services. Follow-up with primary care provider in 1 week. Follow-up with neurology in 2 to 4 weeks. 2. Hypertension-stable, continue home carvedilol, lisinopril regimen. 3. Hypothyroidism-continue Synthroid regimen. 4. AMY 5. GERD-not on regimen. 6. Anxiety/depression-continue home bupropion, escitalopram regimen. 7. Dementia- follows with Dr. Alan. Patient's son reports dementia has been progressively worsening. General: Alert, Oriented x3, Cooperative HEENT: Atraumatic, PERRLA, EOMI, Normocephalic Neck: Supple, No JVD, Negative Carotid Bruits Lungs: Clear to auscultation, Normal air movement Cardiovascular: Regular rate, Regular Rhythm, Normal S1, Normal S2, No murmurs Abdomen: Bowel Sounds Present, Soft, Non Tender, Non-Distended Extremities: No clubbing, No cyanosis, No edema, Capillary Refill Less than 3 Seconds Skin: No rashes, No breakdown Musculoskeletal: No Tenderness to Palpation of Joints or Extremities Neurological: Cranial nerves II-XII grossly intact, Neuro grossly intact Psych/Mental Status: Normal Affect, Appropriate Patient seen and examined prior to discharge. Physical assessment as noted above. Patient is stable for discharge with follow up recommendations as noted above. This patient was seen by VICENTE Ivan under the supervision of Dr. Peralta. - Physical Exam Vitals/I&O's: Vital Signs Temp Pulse Resp BP Pulse Ox 99.3 F H 62 18 117/80 96 02/23/19 08:44 02/23/19 08:44 02/23/19 08:44 02/23/19 08:44 02/23/19 08:44 Oxygen Delivery Method Room Air Weight: 156 lb 11.979 oz Body Mass Index (BMI) 25.2 Finger Stick Blood Glucose 121 Intake and Output for Last 24 Hours 02/21/19 02/22/19 02/23/19 23:59 23:59 23:59 Intake Total 480 / 720 1200 / 1200 Output Total 700 / 700 Balance 480 / 720 500 / 500 Current Medications Aspirin (Aspirin, Baby) 81 mg PO DAILY@0800 [facility] Last Admin: 02/23/19 08:48 Dose: 81 mg Documented by: Atorvastatin Calcium (Lipitor) 80 mg PO QHS [facility] Last Admin: 02/22/19 21:22 Dose: 80 mg Documented by: Bupropion HCl (Wellbutrin Tablets) 75 mg PO DAILY [facility] Last Admin: 02/23/19 08:49 Dose: 75 mg Documented by: Carvedilol (Coreg) 12.5 mg PO DAILY [facility] Last Admin: 02/23/19 08:49 Dose: 12.5 mg Documented by: Dextrose (D50w Syringe) 0 gm IV X1 PRN; Protocol PRN Reason: Hypoglycemia Enoxaparin Sodium (Lovenox) 30 mg SC DAILY@1000 [facility] Last Admin: 02/23/19 08:48 Dose: 30 mg Documented by: Escitalopram Oxalate (Lexapro) 20 mg PO DAILY [facility] Last Admin: 02/23/19 08:49 Dose: 20 mg Documented by: Glucagon () 1 mg IM .X1 PRN PRN Reason: Hypoglycemia Hydralazine HCl (Apresoline Iv) 10 mg IV Q6H PRN PRN PRN Reason: BLOOD PRESSURE ELEVATION Levothyroxine Sodium (Synthroid) 75 mcg PO DAILY@0600 [facility] Last Admin: 02/23/19 04:47 Dose: 75 mcg Documented by: Lisinopril (Zestril) 10 mg PO DAILY [facility] Last Admin: 02/23/19 08:48 Dose: 10 mg Documented by: Discharge Diet: No Restrictions Discharge Activity: Return to Normal Activity Call your doctor if you observe: Shortness of breath, Dizziness, Fainting spells, Chest pain Home Medications: Medications to take at Discharge Aspirin [Aspirin, Baby] 81 mg PO DAILY@0800 12/26/15 Levothyroxine [Synthroid] 75 mcg PO DAILY 12/26/15 Lisinopril [Zestril] 40 mg PO DAILY 12/26/15 Bupropion HCl 75 mg PO DAILY 02/18/19 Carvedilol 25 mg PO DAILY 02/18/19 Escitalopram Oxalate 20 mg PO DAILY 02/18/19 Atorvastatin Calcium 40 mg PO QHS #30 tab 02/23/19 Following Prescrptions Were Given to Patient: Atorvastatin Calcium 40 mg PO QHS #30 tab Transmission Status: Pending to [facility]pharmacy #[id number] Primary Care Physician: Vaibhav Colvin MD [Primary Care Provider] - Please follow up with your Primary Care Physician in: 1 Week Please Follow Up With: Shawn Valencia MD When: 2-4 Weeks Disposition: Home with Home Health Minutes spent on discharge:: 35 Patient Condition:: Stable Medical Necessity - Tobacco Use Smoking Status: Unknown if ever smoked Tobacco Use: Non-smoker Meaningful Use Info Meaningful Use Diagnoses (Choose all that apply): Ischemic CVA - CVA Therapy Assessed for PT,OT and/or ST?: Yes - Ischemic Stroke Antithrombotic order at d/c?: Yes Dx of Atrial fib/flutter?: No Statins at discharge?: Yes Primary Dx Acute Ischemic CVA?: Yes IV tPA ordered during stay?: No Reason IV t-PA not ordered: Medical Contraindication
--- NOTE | 2019-02-23 14:00 | CASEMGMT ---
Patient was denied by insurance to go to a prison. SW called patient's son and let him know this information. He asked why and SW told him they felt she was doing well enough with therapy that she can go home with home health. He asked how they go about that. SW told him that we can set that up. He had no preference for home health agency. He asked that SW call him when the discharge paperwork is completed. ROCKY Patel arranged [facility] for patient. Key AVALOS MSW
[2019-02-23 14:14] VITALS: BP 129/71; PULSE 60; RESP 16; TEMP 36.6; O2SAT 96
--- NOTE | 2019-02-23 14:27 | CASEMGMT ---
ZABRINA called patient's son and let him know the discharge orders are in the computer. He said he would be in to poultry picker patient. ZABRINA let him know [facility] was arranged. He asked what that consists of and ZABRINA told him services that insurance covers and what services were ordered. He expressed concern that she may fall. ZABRINA verbalized empathy and understanding. He said he is worried they won't be able to leave her alone now. ZABRINA told him they will have to see how she does once she gets home. He asked that home health call him to set up appt. ZABRINA will pass this along to [facility]. Plan: Home with [facility] correction, PT, OT, ST, aide, and ZABRINA AVALOS MSW
--- NOTE | 2019-02-23 14:59 | NURSING ---
Son Rocky upset that pt is being discharged to home, informed that it is insurance denying her going to a skilled nursing. Dr. Stover in room talking to son now.
[2019-02-26 13:06] LABS: Bedside Glucose 121 mg/dL (70-110)
== END 2019-02-23 15:03 | disposition home or self-care (01) | DRG 65 ==
LOC: ED 18:55 → PCU 19:26
PROVIDERS: Admitting Provider Student in an Organized Health Care Education/Training Program; Emergency Provider Emergency Medicine; Family Provider Internal Medicine; PCP Internal Medicine; Referring Provider Student in an Organized Health Care Education/Training Program; Visit Provider Internal Medicine
DX: I63.9 Cerebral infarction, unspecified (principal); N17.9 Acute kidney failure, unspecified; R47.01 Aphasia; R53.1 Weakness; R29.704 NIHSS score 4; E03.9 Hypothyroidism, unspecified; K21.9 Gastro-esophageal reflux disease without esophagitis; F03.90 Unspecified dementia, unspecified severity, without behavioral disturbance, psychotic disturbance, mood disturbance, and anxiety; Z66 Do not resuscitate; G47.33 Obstructive sleep apnea (adult) (pediatric); I11.9 Hypertensive heart disease without heart failure; F32.9 Major depressive disorder, single episode, unspecified; F41.9 Anxiety disorder, unspecified; S00.31XA Abrasion of nose, initial encounter; W19.XXXA Unspecified fall, initial encounter; Y92.019 Unspecified place in single-family (private) house as the place of occurrence of the external cause
CPT/HCPCS: 36415; 70450; 70496; 70498; 70551; 71045; 72125; 80048; 80061; 81001; 82962; 84443; 84484; 85025; 85610; 85730; 92523; 92526; 92610; 93005; 93306; 94762; 97116; 97162; 97166; 97530; 97535; 97802; 97803; 99285; Q9957; Q9967; A4216

== ENCOUNTER 2019-02-27 17:50 | Observation (INO) | payer MEDICARE, SELFPAY ==
[2019-02-22 14:55] VITALS: BMI 25.2
[2019-02-27 17:50] VITALS: BP 162/106; PULSE 62; RESP 12; TEMP 36.9; O2SAT 97; BMI 25.7
--- NOTE | 2019-02-27 18:17 | CT_ITS ---
STUDY: CT BRAIN WITHOUT CONTRAST REASON FOR EXAM: Female, 83 years old. Trauma. Recent stroke. RADIATION DOSAGE (If Supplied By Facility): CTDIvol = ( 44.99 ) mGy, DLP = ( 829.85 ) mGycm TECHNIQUE: Transaxial CT imaging of the brain was performed without administration of intravenous contrast material. Individualized dose optimization techniques were used for this CT. COMPARISON: MRI dated 02/19/2019. CT dated 02/18/2019. FINDINGS: There is a subacute infarct in the left thalamus. This was better evaluated on the prior MRI. There is no acute bleed or infarct. There are stable chronic ischemic and atrophic changes. The ventricles are normal in configuration. There is no hydrocephalus. The visualized paranasal sinuses are clear. The mastoid air cells are well aerated. There is no skull fracture. CT/Brain/Head without Contrast IMPRESSION: Subacute infarct in the left thalamus which was better evaluated on the MRI dated 02/19/2019. Stable chronic ischemic and atrophic changes. No acute intracranial abnormality. Electronically Signed: Dell Everett, at 18:48 EDT Tel , Service support ,
--- NOTE | 2019-02-27 18:20 | ED.DCSUM_ITS ---
History of Present Illness Chief Complaint: Fall Detail of Chief Complaint: Fall in garage Informant: Patient, Family Limited by: Dementia Onset: Today Current Severity: Mild Maximum Severity: Mild Narrative: Patient presents via EMS after falling in her garage at home. Patient has a history of dementia. She was recently admitted with a subacute stroke. Son states he was outside blowing leaves when the patient apparently tried to go down 2 steps into the garage and fell. He turned around when he heard her fall and found her lying on the cement floor. There was no loss of consciousness. Son states patient does not use a cane or walker at home. They were hoping to get her to rehab as she has had a lot of unsteadiness on her feet, but son states insurance denied that on last admission. Son does state that he tried to take her to the local pharmacy this morning to order picker some medication. She was not even able to walk through the store secondary to leg weakness and had to be taken back out to the car. He has noted her weakness worsening, but states it affects both legs. Past Medical History - Allergies and Home Meds Allergies/Adverse Reactions: Allergies sulfamethoxazole [From Septra] Allergy (Verified 02/27/19 17:55) Unknown trimethoprim [From Septra] Allergy (Verified 02/27/19 17:55) Unknown venom-honey bee [bee venom (honey bee)] Allergy (Verified 02/27/19 17:55) Hives Primary Care Physician: Vaibhav Colvin MD [Primary Care Provider] - Prior records reviewed: Yes Past Medical History: - - Reviewed Surgical History: - - tonsils out,tubal Lives: With Family Smoking Status: Unknown if ever smoked - Family History Maternal Family History: Reports: Hypertension, Stroke Paternal Family History: Reports: - - thinks he of a stroke ast well. Review of Systems General: Denies: Chills, Fever Eyes: Denies: Visual changes - bilaterally ENT: Denies: Bilateral ear pain Cardiovascular: Denies: Chest pain Respiratory: Denies: Dyspnea, Cough Gastrointestinal: Denies: Abdominal pain, Nausea, Vomiting, Diarrhea Skin: Denies: Rash Neurological: Reports: Weakness - Generalized weakness. Denies: Headache Hematologic: Denies: Easy bruising Allergy: Denies: Uticaria Physical Exam Vital Signs/Narrative: Vital Signs Temp Pulse Resp BP Pulse Ox 02/27/19 17:50 98.4 F 62 12 162/106 H 97 Inital Vital Signs reviewed: Yes General: Well nourished, Well developed Head: Normocephalic ENT: Moist mucous membranes Neck: Supple, - - No C-spine tenderness Cardiovascular: Regular rate, Regular rhythm Respiratory: No distress, CTA bilaterally, Chest nontender Abdomen: Soft, Nontender, Hypoactive bowel sounds Extremities: Nontender, No edema Skin: Normal color, No rash Neurological: Alert, - - Alert but intimately confused. Son states this is consistent with her baseline dementia. Patient is able to move all 4 extremit ies. She can hold both legs up off the bed without difficulty. Diagnostic/Tx/Re-eval Impressions Brain CT 02/27/19 18:17 IMPRESSION: Subacute infarct in the left thalamus which was better evaluated on the MRI dated 02/19/2019. Stable chronic ischemic and atrophic changes. No acute intracranial abnormality. Electronically Signed: Dell Floyd, at 18:48 EDT Tel , Service support , 02/27/19 18:17 Brain/Head without Contrast [CT] Stat Laboratory Results 02/27/19 02/27/19 02/27/19 18:50 18:50 18:55 WBC 9.4 RBC 4.52 Hgb 13.2 Hct 41.0 MCV 90.7 MCH 29.2 MCHC 32.2 RDW Std Deviation 44.9 H RDW Coeff of Cirilo 13.3 Plt Count 269 MPV 9.9 Immature Gran % (Auto) 0.200 Neut % (Auto) 50.2 Lymph % (Auto) 35.5 [place] % (Auto) 10.8 H Eos % (Auto) 2.7 Baso % (Auto) 0.6 Absolute Neuts (auto) 4.7 Absolute Lymphs (auto) 3.34 Nucleated RBC % 0 Sodium 139 Potassium 4.3 Chloride 106 Carbon Dioxide 27.0 Anion Gap 6 BUN 19 H Creatinine 0.90 Estim Creat Clear Calc 45.25 Est GFR (MDRD) Af Amer 77 Est GFR (MDRD) Non-Af 63 BUN/Creatinine Ratio 21.1 H Glucose 100 Calcium 9.1 Urine Color Yellow Urine Clarity Sl Cldy Urine pH 5.0 Ur Specific [place] 1.025 Urine Protein 15 H Urine Glucose (UA) Normal Urine Ketones Negative Urine Occult Blood 10 H Urine Nitrite Negative Urine Bilirubin Negative Urine Urobilinogen 1 H Ur Leukocyte Esterase Negative Urine RBC 0 SEEN Urine WBC 0 SEEN Ur Squamous Epith Cells 0-5 SEEN Urine Bacteria RARE Urine Mucus 3+ - Medical Decision Making Test results are discussed with patient and son at bedside. I spoke with social work after I initially saw the patient. She was able to review patient's notes from recent admission. Patient has clearly failed outpatient therapy with increasing weakness and now a fall. It is our hope that patient can be accepted to rehab facility. I will speak with hospitalist regarding admission so those arrangements can be made. ED Disposition - Plan for ED Patient: Disposition: Home or Assisted Living Diagnosis: Weakness, Fall Referrals: Vaibhav Colvin MD [Primary Care Provider] -
[2019-02-27 19:03] LABS: Red Blood Cells-Urine 0 SEEN /hpf (0-5); White Blood Cells 0 SEEN /hpf (0-5)
[2019-02-27 19:04] LABS: Absolute Lymphocyte Count 3.34 X10^3/uL (0.83-4.51); Absolute Neutrophil Count 4.7 X10^3/uL (2.0-7.7); Basophil# 0.06 X10^3/uL; Basophil% 0.6 % (0-1); Eosinophil# 0.25 X10^3/uL; Eosinophils% 2.7 % (0-5); Hemoglobin 13.2 g/dL (12.0-15.0); Lymphocyte # 3.34 X10^3/ul (4.0); Lymphocyte % 35.5 % (19-41); Mean Corp Hgb Conc 32.2 g/dL (32-36); Mean Corpuscular Hgb 29.2 pg (27.0-32.0); Mean Corpuscular Volume 90.7 fL (81-99); Mean Platelet Vol. 9.9 fl (6.2-12.0); Monocyte# 1.02 X10^3/uL; Monocyte% 10.8 % (0-10); NRBC Flagged by Analyzer 0 % (0-5); Neutrophil # 4.72 X10^3/uL (2.7-7.7); Neutrophil % 50.2 % (47-70); Platelet Count 269 K/mm3 (150-450); RBC Distribution Width CV 13.3 % (11.6-14.6); RBC Distribution Width SD 44.9 fl (35.1-43.9); Red Blood Count 4.52 M/mm3 (4.2-5.4); White Blood Count 9.4 K/mm3 (4.4-11.0)
[2019-02-27 19:04] LABS: Color, Urine Yellow (Yellow); Glucose, Dipstick Normal (Normal); Ketone-Dipstick Negative (Negative); Leukocyte Esterase-Dipstick Negative /ul (Negative); Nitrite-Dipstick Negative (Negative); Occult Blood-Urine 10 /ul (Negative); Protein-Dipstick 15 mg/dl (Negative); Specific Gravity, Urine 1.025 (1.002-1.030); Urine Bilirubin Dipstick Negative (Negative); Urine Urobilinogen 1 mg/dl (Normal)
[2019-02-27 19:13] LABS: Urine Clarity Sl Cldy (Clear)
[2019-02-27 19:14] LABS: Bacteria RARE /hpf (None Seen); Mucous, Urine 3+ /hpf (<or=2+); Squamous Epithelial Cells - UA 0-5 SEEN /hpf (5-10)
[2019-02-27 19:17] LABS: Anion Gap 6 (5-15); BUN 19 mg/dL (7-18); BUN/Creat Ratio 21.1 RATIO (10-20); Calcium,Total 9.1 mg/dL (8.5-10.1); Chloride 106 mmol/L (98-107); EST Glomerular Filtration Rate 63 mL/min (>60); Est Glom Filt Rate - Afr Amer 77 mL/min (>60); Estimated Creatinine Clearance 45.25 ml/min; Glucose 100 mg/dL (74-106); Potassium 4.3 mmol/L (3.5-5.1); Sodium Level 139 mmol/L (136-145)
[2019-02-27 19:57] VITALS: BP 181/79; PULSE 60; RESP 17; O2SAT 93
--- NOTE | 2019-02-27 20:03 | HP.PCM_ITS ---
Problem List (1) Weakness Status: Acute (2) Fall Status: Acute (3) Hypothyroidism Status: Chronic (4) Anxiety Status: Chronic (5) Diastolic dysfunction Status: Chronic (6) LVH (left ventricular hypertrophy) Status: Chronic (7) Bradycardia Status: Inactive (8) GERD (gastroesophageal reflux disease) Status: Chronic (9) CVA (cerebral vascular accident) Status: Chronic (10) HTN (hypertension) Status: Chronic (11) AMY (obstructive sleep apnea) Status: Chronic History of Present Illness Date of Admission: 02/27/19 Chief Complaint: fall The patient is a 83 year old F with a significant history of hypertension; dementia; depression and anxiety who presented to emergency department because of a fall. Per family patient was walking down the stairs to dispose garbage when she fell. Reportedly she was found holding her head. Patient presented to the emergency department a few hours before the fall. On the same day of presentation her family reported patient was too weak to walk. Her family reports that patient works with a shuffling gait. Brain CT at the emergency department was remarkable for subacute infarct in the left thalamus; better evaluated on MRI dated 02/19/2019. Of note patient was admitted on 02/18/2019 and discharged on 02/23/2019 for acute/subacute left small vessel infarcts. On her previous admission her insurance carrier did not approve her going to a correction facility for rehab. Past Medical History Past Medical History (Chronic Problems): Chronic Problems Hypothyroidism (Chronic) Anxiety (Chronic) Diastolic dysfunction (Chronic) LVH (left ventricular hypertrophy) (Chronic) GERD (gastroesophageal reflux disease) (Chronic) HTN (hypertension) (Chronic) CVA (cerebral vascular accident) (Chronic) AMY (obstructive sleep apnea) (Chronic) Allergies sulfamethoxazole [From Septra] Allergy (Verified 02/27/19 17:55) Unknown trimethoprim [From Septra] Allergy (Verified 02/27/19 17:55) Unknown venom-honey bee [bee venom (honey bee)] Allergy (Verified 02/27/19 17:55) Hives Home Medications: Ambulatory Orders Medication Instructions Recorded Aspirin [Aspirin, Baby] 81 mg PO DAILY@0800 12/26/15 Levothyroxine [Synthroid] 75 mcg PO DAILY 12/26/15 Lisinopril [Zestril] 10 mg PO DAILY 12/26/15 Bupropion HCl 75 mg PO DAILY 02/18/19 Carvedilol 25 mg PO DAILY 02/18/19 Escitalopram Oxalate 20 mg PO DAILY 02/18/19 Atorvastatin Calcium 40 mg PO QHS #30 tab 02/23/19 Surgical History: tonsillectomy, - - tonsils out,tubal Psychiatric History: Depression Lives: With Family Smoking Status: Former smoker Alcohol: Rare - *Family History Maternal History Items: Hypertension, Stroke Paternal History Items: - - thinks he of a stroke ast well. Review of Systems Constitutional: Reports: Weakness. Denies: Chills, Fever, Weight Change HEENT: Denies: Head Aches, Sinus Congestion, Sinus Drainage Cardiovascular: Denies: Chest Pain, Palpitations Respiratory: Denies: Cough, Shortness of breath at rest, Sputum production Gastrointestinal: Denies: Abdominal Pain, Nausea, Vomiting Genitourinary: Denies: Dysuria Musculoskeletal: Denies: Joint Pain, Joint Tenderness Skin: Denies: Rash, Wounds Neurological: Reports: Change in Speech, Confusion. Denies: Focal weakness, Numbness, Tingling Psychiatric: Reports: Anxiety, Depression. Denies: Homicidal Ideations, Suicidal Ideations Hematologic/ Lymphatic: Denies: Easy Bruising, Easy Bleeding VTE Information - Inpt Only VTE Present on Admission: No VTE Mechan Device Prophylaxis: None VTE Pharm Prophylaxis ordered?: Yes Patient Problems: Active and Suspected Problems Weakness (Acute) Fall (Acute) - Physical Exam Vitals/I&O's: Vital Signs Temp Pulse Resp BP Pulse Ox 98.4 F 60 17 181/79 H 93 02/27/19 17:50 02/27/19 19:57 02/27/19 19:57 02/27/19 19:57 02/27/19 19:57 Oxygen Delivery Method Room Air Weight: 74.7 kg Body Mass Index (BMI) 25.7 Finger Stick Blood Glucose 121 General: Alert, Cooperative, - - Patient is oriented to place a year but other months. HEENT: Atraumatic, PERRLA, EOMI, Normocephalic Neck: Supple, No JVD, Negative Carotid Bruits Lungs: Clear to auscultation, Normal air movement Cardiovascular: Regular rate, No murmurs Abdomen: Bowel Sounds Present, Soft, Non Tender Extremities: No edema, Capillary Refill Less than 3 Seconds Skin: No rashes, No breakdown Musculoskeletal: No Tenderness to Palpation of Joints or Extremities Neurological: Cranial nerves II-XII grossly intact, Slurred Speech - intermittent Psych/Mental Status: Normal Affect, Appropriate Laboratory Results 02/27/19 18:50: WBC 9.4, RBC 4.52, Hgb 13.2, Hct 41.0, MCV 90.7, MCH 29.2, MCHC 32.2, RDW Std Deviation 44.9 H, RDW Coeff of Cirilo 13.3, Plt Count 269, MPV 9.9, Immature Gran % (Auto) 0.200, Neut % (Auto) 50.2, Lymph % (Auto) 35.5, [place] % (Auto) 10.8 H, Eos % (Auto) 2.7, Baso % (Auto) 0.6, Absolute Neuts (auto) 4.7, Absolute Lymphs (auto) 3.34, Nucleated RBC % 0 02/27/19 18:50: Sodium 139, Potassium 4.3, Chloride 106, Carbon Dioxide 27.0, Anion Gap 6, BUN 19 H, Creatinine 0.90, Estim Creat Clear Calc 45.25, Est GFR (MDRD) Af Amer 77, Est GFR (MDRD) Non-Af 63, BUN/Creatinine Ratio 21.1 H, Glucose 100, Calcium 9.1 02/27/19 18:55: Urine Color Yellow, Urine Clarity Sl Cldy, Urine pH 5.0, Ur Specific [place] 1.025, Urine Protein 15 H, Urine Glucose (UA) Normal, Urine Ketones Negative, Urine Occult Blood 10 H, Urine Nitrite Negative, Urine Bilirubin Negative, Urine Urobilinogen 1 H, Ur Leukocyte Esterase Negative, Urine RBC 0 SEEN, Urine WBC 0 SEEN, Ur Squamous Epith Cells 0-5 SEEN, Urine Bacteria RARE, Urine Mucus 3+ Current Medications Sodium Chloride () 1,000 mls @ 15 mls/hr IV .Q48H [facility] Assessment/Plan All Active Problems Weakness (Acute) Fall (Acute) The patient is a 83 year old F with a significant history of hypertension; dementia; depression and anxiety who presented to the emergency department with a fall and weakness. Fall and weakness Brain CT showed stable subacute thalamic infarct. Patient already gets outpatient physical therapy. On previous admission her insurance carrier did not approve her for rehab at the correction facility. Patient tello continue with physical and occupational therapy while inpatient. Patient may need to go to rehab. Case Management consult. Get TSH; vitamin B12 and vitamin D level. Hypertension Not within goal on admission. We will continue home lisinopril and Coreg. Will add PRN hydralazine. Trend blood pressure and adjust blood pressure medication as necessary Depression and anxiety Wellbutrin continued Hyperlipidemia Lipitor continued Hypothyroidism Check TSH Synthroid continued. DVT Prophylaxis Subcutaneous Lovenox Code Visit OBSV E&M: 18600 Initial observation care L2
[2019-02-27] MEDS: 0.9% Normal Saline 1,000 ML 15 ML IV (20:12)
[2019-02-27 21:13] VITALS: BMI 25.1; BMI 25.2
[2019-02-27 21:29] VITALS: BP 149/91; PULSE 60; RESP 16; TEMP 37
[2019-02-27 21:49] VITALS: O2SAT 98
[2019-02-27 22:22] LABS: Thyroid Stim Hormone (TSH) 4.04 uIU/mL (0.358-3.74)
[2019-02-27] MEDS: Atorvastatin Calcium 40 MG Tablet PO (22:24)
[2019-02-28 03:02] VITALS: BP 152/75; PULSE 64; RESP 16; TEMP 36.8; O2SAT 95
[2019-02-28] MEDS: Levothyroxine 75 MCG Tablet PO (06:19)
[2019-02-28 07:35] VITALS: O2SAT 93
--- NOTE | 2019-02-28 09:33 | PN_ITS ---
Patient Problems: Active and Suspected Problems Weakness (Acute) Fall (Acute) Subjective: Chief complaint: Follow-up after admission for mechanical fall, functional decline and physical debility. Patient seen and examined. No acute events overnight. She denies any complaints. She did remember that she had a fall yesterday. Reported no pain, headache or significant trauma. Patient was oriented x2, disoriented to time and date but she is a history of dementia. Her vital signs are stable. - Physical Exam Vitals/I&O's: Vital Signs Temp Pulse Resp BP Pulse Ox 98.3 F 64 16 152/75 H 93 02/28/19 03:02 02/28/19 03:02 02/28/19 03:02 02/28/19 03:02 02/28/19 07:35 Oxygen Flow Rate (L/min) 98 Oxygen Delivery Method Room Air Weight: 155 lb 13.869 oz Body Mass Index (BMI) 25.1 Finger Stick Blood Glucose 121 Intake and Output for Last 24 Hours 02/26/19 02/27/19 02/28/19 23:59 23:59 22:59 Intake Total 156 / 156 240 / 240 Output Total 300 / 300 400 / 400 Balance -144 / -144 -160 / -160 General: Alert, Cooperative, No apparent distress, Disoriented - Oriented to herself and place, disoriented to time. HEENT: Atraumatic, PERRLA, EOMI, Normocephalic Oral: Moist Mucosa, No Gingival or Mucosal Lesions/ Ulcerations Neck: Supple, No JVD, Negative Carotid Bruits, Trachea Midline, Thyroid Normal Size and Texture Lungs: Clear to auscultation, Normal air movement, No rhonchi, No wheeze, No rales, Diminished Cardiovascular: Regular rate, Regular Rhythm, Normal S1, Normal S2, PMI Normal Abdomen: Bowel Sounds Present, Soft, Non Tender, Non-Distended, No Hepato- splenomegaly Extremities: No clubbing, No cyanosis, No edema Skin: No rashes, No breakdown Lymphatic: No Cervical, Supraclavicular, or Inguinal Adenopathy Neurological: Cranial nerves II-XII grossly intact, Motor Exam 5/5 strength throughout Psych/Mental Status: Normal Affect, Appropriate Laboratory Results 02/27/19 18:50: WBC 9.4, RBC 4.52, Hgb 13.2, Hct 41.0, MCV 90.7, MCH 29.2, MCHC 32.2, RDW Std Deviation 44.9 H, RDW Coeff of Cirilo 13.3, Plt Count 269, MPV 9.9, Immature Gran % (Auto) 0.200, Neut % (Auto) 50.2, Lymph % (Auto) 35.5, [place] % (Auto) 10.8 H, Eos % (Auto) 2.7, Baso % (Auto) 0.6, Absolute Neuts (auto) 4.7, Absolute Lymphs (auto) 3.34, Nucleated RBC % 0 02/27/19 18:50: Sodium 139, Potassium 4.3, Chloride 106, Carbon Dioxide 27.0, Anion Gap 6, BUN 19 H, Creatinine 0.90, Estim Creat Clear Calc 45.25, Est GFR (MDRD) Af Amer 77, Est GFR (MDRD) Non-Af 63, BUN/Creatinine Ratio 21.1 H, Glucose 100, Calcium 9.1 02/27/19 18:50: TSH 4.04 H 02/27/19 18:50: Vitamin B12 Pending, Vitamin D 25-Hydroxy Pending 02/27/19 18:55: Urine Color Yellow, Urine Clarity Sl Cldy, Urine pH 5.0, Ur Specific [place] 1.025, Urine Protein 15 H, Urine Glucose (UA) Normal, Urine Ketones Negative, Urine Occult Blood 10 H, Urine Nitrite Negative, Urine Bilirubin Negative, Urine Urobilinogen 1 H, Ur Leukocyte Esterase Negative, Urine RBC 0 SEEN, Urine WBC 0 SEEN, Ur Squamous Epith Cells 0-5 SEEN, Urine Bacteria RARE, Urine Mucus 3+ Clinical Impression(s) from Imaging Studies Brain CT 02/27/19 18:17 IMPRESSION: Subacute infarct in the left thalamus which was better evaluated on the MRI dated 02/19/2019. Stable chronic ischemic and atrophic changes. No acute intracranial abnormality. Electronically Signed: Dell Floyd, at 18:48 EDT Tel , Service support , Current Medications Acetaminophen (Tylenol) 650 mg PO Q6H PRN PRN PRN Reason: Pain Score 1-3/Temp > 100.7 F Aspirin (Aspirin, Baby) 81 mg PO DAILY@0800 [facility] Atorvastatin Calcium (Lipitor) 40 mg PO QHS [facility] Last Admin: 02/27/19 22:24 Dose: 40 mg Documented by: Bupropion HCl (Wellbutrin Tablets) 75 mg PO DAILY [facility]) [facility] Dextrose (D50w Syringe) 0 gm IV X1 PRN; Protocol PRN Reason: Hypoglycemia Enoxaparin Sodium (Lovenox) 40 mg SC DAILY@1000 [facility] Escitalopram Oxalate (Lexapro) 20 mg PO DAILY [facility] Glucagon () 1 mg IM .X1 PRN PRN Reason: Hypoglycemia Hydralazine HCl (Apresoline Iv) 5 mg IV Q4H PRN PRN PRN Reason: SBP > 160 Sodium Chloride () 250 mls @ 15 mls/hr IV .[id number] PRN PRN Reason: Saline Flush Levothyroxine Sodium (Synthroid) 75 mcg PO DAILY@0600 [facility] Last Admin: 02/28/19 06:19 Dose: 75 mcg Documented by: Lisinopril (Zestril) 10 mg PO DAILY [facility] Ondansetron HCl (Zofran) 4 mg IV Q8H PRN PRN PRN Reason: NAUSEA/VOMITING Sodium Chloride () 10 - 40 ml IV UD PRN PRN Reason: SALINE FLUSH Medical Necessity - Tobacco Use Smoking Status: Former smoker Assessment/Plan All Active Problems Weakness (Acute) Fall (Acute) This is an 83 years old female patient presented to the medicine because of mechanical fall, functional decline in context of recent history of 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 #1 mechanical fall/physical debility/functional decline: Due to age, multiple medical problems and recent stroke. Patient was declined by insurance to go to [facility] facility after she suffered a stroke on February 19, 2019. No evidence of significant trauma. CT scan brain showed no acute findings. Patient denies any pain. Her vital signs are stable. Routine blood work was unremarkable. Urinalysis was unremarkable. Plan: PT OT evaluation and treatment, social professionals and field case manager consult for placement to [facility] facility. #2 recent subacute infarcts of the left thalamus and putamen: With no significant focal deficit. Patient is on aspirin and statins. Blood pressure stable, other vital signs are stable. Plan to continue same treatment. #3 hypertension: Blood pressure stable, continue Coreg and lisinopril. IV hydralazine PRN. #4 hypothyroidism: Continue levothyroxine. TSH was 4.04. It was 3.18 on February 19, 2019, recommend repeat TSH in 2 to 4 weeks, continue same dose of levothyroxine. #5 hyperlipidemia: Continue statins. #6 depression: Stable, continue bupropion. #7 DVT prophylaxis: Subcu Lovenox. This note was generated with [employer] dictation software. It may contain incorrect words, spelling, and punctuation that were not noted in checking the note before signing. Code Visit OBSV E&M: 60129 Subsequent observation care L2
[2019-02-28] MEDS: Lisinopril 10 MG Tablet PO (10:32)
[2019-02-28] MEDS: Aspirin 81 MG TAB.CHEW PO (10:33)
[2019-02-28] MEDS: buPROPion 75 MG Tablet PO (10:33)
[2019-02-28] MEDS: Escitalopram Oxalate 20 MG Tablet PO (10:33)
[2019-02-28] MEDS: Carvedilol 25 MG Tablet PO (10:33)
[2019-02-28] MEDS: Enoxaparin 40 MG/0.4 ML Syringe SC (10:34)
--- NOTE | 2019-02-28 10:45 | NURSING ---
Sitting in chair with personal chair alarm on. Grandson in room with pt visiting.
[2019-02-28 10:57] VITALS: BP 149/73; PULSE 63; RESP 18; TEMP 36.7; O2SAT 92
[2019-02-28 16:11] VITALS: BP 124/70; PULSE 59; RESP 16; TEMP 36.8; O2SAT 97
[2019-02-28] MEDS: 0.9% Saline Lock 10 ML Syringe IV (16:19)
--- NOTE | 2019-02-28 18:34 | NURSING ---
Pt voided but missed hat twice. This nurse bladder scanned pt for 50cc. Will inform next shift to monitor.
[2019-02-28 20:07] VITALS: BP 153/62; PULSE 57; RESP 18; TEMP 36.8; O2SAT 93
[2019-02-28] MEDS: Atorvastatin Calcium 40 MG Tablet PO (21:35)
[2019-03-01 02:28] VITALS: BP 152/90; PULSE 65; RESP 16; TEMP 36.6; O2SAT 93
[2019-03-01] MEDS: Levothyroxine 75 MCG Tablet PO (05:53)
[2019-03-01 09:00] LABS: Vitamin B12 283 pg/mL (211-911); Vitamin D,25 Hydroxy 19.4 ng/mL (29.95-100.01)
--- NOTE | 2019-03-01 09:06 | PN_ITS ---
Patient Problems: Active and Suspected Problems Weakness (Acute) Fall (Acute) Subjective: Chief complaint: Follow-up after admission for mechanical fall, functional decline and physical debility with recent history of stroke. Patient seen and examined. No acute events overnight. She denies any complaints. Her vital signs are stable. - Physical Exam Vitals/I&O's: Vital Signs Temp Pulse Resp BP Pulse Ox 97.8 F 65 16 152/90 H 93 03/01/19 02:28 03/01/19 02:28 03/01/19 02:28 03/01/19 02:28 03/01/19 02:28 Oxygen Flow Rate (L/min) 98 Oxygen Delivery Method Room Air Weight: 155 lb 13.869 oz Body Mass Index (BMI) 25.1 Finger Stick Blood Glucose 121 Intake and Output for Last 24 Hours 02/28/19 02/28/19 03/01/19 00:59 23:59 23:59 Intake Total 350 / 350 Output Total 250 / 250 Balance 100 / 100 General: Alert, Cooperative, No apparent distress, - - Oriented x2. HEENT: Atraumatic, PERRLA, EOMI, Normocephalic Oral: Moist Mucosa, No Gingival or Mucosal Lesions/ Ulcerations Neck: Supple, No JVD, Negative Carotid Bruits Lungs: Clear to auscultation, Normal air movement, No rhonchi, No wheeze, No rales, Diminished Cardiovascular: Regular rate, Regular Rhythm, Normal S1, Normal S2, PMI Normal Abdomen: Bowel Sounds Present, Soft, Non Tender, Non-Distended, No Hepato- splenomegaly Extremities: No clubbing, No cyanosis, No edema Skin: No rashes, No breakdown Lymphatic: No Cervical, Supraclavicular, or Inguinal Adenopathy Neurological: Cranial nerves II-XII grossly intact, Motor Exam 5/5 strength throughout Psych/Mental Status: Normal Affect, Appropriate Laboratory Results 02/27/19 18:50: Vitamin B12 283, Vitamin D 25-Hydroxy 19.4 L Current Medications Acetaminophen (Tylenol) 650 mg PO Q6H PRN PRN PRN Reason: Pain Score 1-3/Temp > 100.7 F Aspirin (Aspirin, Baby) 81 mg PO DAILY@0800 [facility] Last Admin: 02/28/19 10:33 Dose: 81 mg Documented by: Atorvastatin Calcium (Lipitor) 40 mg PO QHS [facility] Last Admin: 02/28/19 21:35 Dose: 40 mg Documented by: Bupropion HCl (Wellbutrin Tablets) 75 mg PO DAILY [facility] Last Admin: 02/28/19 10:33 Dose: 75 mg Documented by: Carvedilol (Coreg) 25 mg PO DAILYCM [facility] Last Admin: 02/28/19 10:33 Dose: 25 mg Documented by: Dextrose (D50w Syringe) 0 gm IV X1 PRN; Protocol PRN Reason: Hypoglycemia Enoxaparin Sodium (Lovenox) 40 mg SC DAILY@1000 [facility] Last Admin: 02/28/19 10:34 Dose: 40 mg Documented by: Escitalopram Oxalate (Lexapro) 20 mg PO DAILY [facility] Last Admin: 02/28/19 10:33 Dose: 20 mg Documented by: Glucagon () 1 mg IM .X1 PRN PRN Reason: Hypoglycemia Hydralazine HCl (Apresoline Iv) 5 mg IV Q4H PRN PRN PRN Reason: SBP > 160 Sodium Chloride () 250 mls @ 15 mls/hr IV .[id number] PRN PRN Reason: Saline Flush Levothyroxine Sodium (Synthroid) 75 mcg PO DAILY@0600 [facility] Last Admin: 03/01/19 05:53 Dose: 75 mcg Documented by: Lisinopril (Zestril) 10 mg PO DAILY [facility] Last Admin: 02/28/19 10:32 Dose: 10 mg Documented by: Ondansetron HCl (Zofran) 4 mg IV Q8H PRN PRN PRN Reason: NAUSEA/VOMITING Sodium Chloride () 10 - 40 ml IV UD PRN PRN Reason: SALINE FLUSH Last Admin: 02/28/19 16:19 Dose: 10 ml Documented by: Medical Necessity - Tobacco Use Smoking Status: Former smoker Assessment/Plan All Active Problems Weakness (Acute) Fall (Acute) This is an 83 years old female patient presented to the medicine because of mechanical fall, functional decline in context of recent history of 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 #1 mechanical fall/physical debility/functional decline: Due to age, multiple medical problems and recent stroke. No evidence of significant trauma. She has no focal deficit on physical exam. Patient was declined by insurance to go to longterm facility after she suffered a stroke on February 19, 2019. CT scan brain showed no acute findings. Patient denies any pain. Her vital signs are stable. Routine blood work was unremarkable. Urinalysis was unremarkable. Awaiting placement to longterm facility. #2 recent subacute infarcts of the left thalamus and putamen: With no significant focal deficit. Patient is on aspirin and statins. Blood pressure stable, other vital signs are stable. Plan to continue same treatment. #3 hypertension: Blood pressure stable, continue Coreg and lisinopril. IV hydralazine PRN. #4 hypothyroidism: Continue levothyroxine. TSH was 4.04. It was 3.18 on February 19, 2019, recommend repeat TSH in 2 to 4 weeks, continue same dose of levothyroxine. #5 hyperlipidemia: Continue statins. #6 depression: Stable, continue bupropion. #7 DVT prophylaxis: Subcu Lovenox. This note was generated with [employer] dictation software. It may contain incorrect words, spelling, and punctuation that were not noted in checking the note before signing. Code Visit OBSV E&M: 73550 Subsequent observation care L2
[2019-03-01 09:30] VITALS: BP 155/74; PULSE 61; RESP 16; TEMP 36.7; O2SAT 94
[2019-03-01] MEDS: Escitalopram Oxalate 20 MG Tablet PO (09:31)
[2019-03-01] MEDS: Lisinopril 10 MG Tablet PO (09:32)
[2019-03-01] MEDS: Enoxaparin 40 MG/0.4 ML Syringe SC (09:32)
[2019-03-01] MEDS: buPROPion 75 MG Tablet PO (09:32)
[2019-03-01] MEDS: Aspirin 81 MG TAB.CHEW PO (09:32)
[2019-03-01] MEDS: Carvedilol 25 MG Tablet PO (09:32)
--- NOTE | 2019-03-01 09:49 | CASEMGMT ---
Case Management Progress Note: This verse writer to patient bedside, patient resting and easily aroused to verbal stimuli. Introduced self and role. ESCALANTE form explained and reviewed with patient in regards of current treatment for this hospital admission. Notified patient that outpatient billing is determined by her insurance policy and status is continually reviewed for any changes in condition that may warrant inpatient stay. patient states understanding and signed ESCALANTE form which was placed in patient hard chart. Patient given a copy. Denies any questions or concerns regarding the ESCALANTE form. Bethanie Aguilar RNCM
--- NOTE | 2019-03-01 10:05 | CASEMGMT ---
Addendum entered by Amanda Gallegos 03/01/19 10:43: SW received message from [place] at [facility] stating she is able to accept pt and has submitted for pre-cert. Plan: [facility] pending pre-cert Amanda NICKERSON, DOMO Original Note: Social Work Note SW reviewed pt's chart. Pt was just on PCU recently and the plan was for pt to go to [facility] pending pre-cert but was denied [facility] by pt's insurance. Pt does have history of dementia. ZABRINA placed a call to pt's son Dion who is listed as HCPOA. ZABRINA introduced self and role at [facility]. Dion confirms that the plan is for pt to go to SNF and requests [facility] again. ZABRINA explained that this worker will have to send new referral and start the process with insurance again. Dion states understanding. Dion was provided list of in network SNF facilities from pt's last visit at [facility]. ZABRINA placed a call to Verona at [facility] and left her a message regarding referral. ZABRINA Faxed referral. Plan: [facility] pending acceptance and pre-cert Amanda NICKERSON, TRAIL MAINTENANCE WORKER
[2019-03-01 15:10] VITALS: BP 139/75; PULSE 54; RESP 16; TEMP 36.9; O2SAT 97
--- NOTE | 2019-03-01 15:44 | PCM.TXEXTCAR ---
- Diet 02/27/19 21:28 Diet: Regular Diet Food consistency:: Regular Liquid Consistency:: Regular/Thin - Wound(s) Lt pointer finger Wound Type: scratch from fall - Suggestions for Active Care Change Position every (hours): 3 Hours to sit in a chair: 2 Times a day to sit in chair: 3 - Therapies Weight Bearing: Weight bearing as tolerated Physical Therapy: Eval and Treat Occupational Therapy: Eval and Treat - Allergies/Procedures Done in Hospital Allergies/Adverse Reactions: Allergies sulfamethoxazole [From ] Allergy (Verified 02/27/19 17:55) Unknown trimethoprim [From ] Allergy (Verified 02/27/19 17:55) Unknown venom-honey bee [bee venom (honey bee)] Allergy (Verified 02/27/19 17:55) Hives - Type of Care/Length of Stay Estimated LOS: Convalescent Care Less Than 30 days Type of Care Needed: Skilled Rehab Potential: Fair Prognosis: Fair - Additional Orders/Day of Discharge H&P will serve as current which was dated: 02/27/19 Day of Discharge: 03/01/19 - Follow Up Care Primary Care Physician: Vaibhav Colvin MD [Primary Care Provider] - Please follow up with your Primary Care Physician in: 2 weeks.
--- NOTE | 2019-03-01 15:53 | PCM.DC.SUM ---
Discharge Date and Diagnosis Date of Admission: 02/27/19 Date of Discharge: 03/01/19 - Primary Discharge Diagnosis Active and Suspected Problems 1- Mechanical fall/ physical debility/ functional decline. 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 - Secondary Discharge Diagnosis Chronic Problems Hypothyroidism (Chronic) Anxiety (Chronic) Diastolic dysfunction (Chronic) LVH (left ventricular hypertrophy) (Chronic) GERD (gastroesophageal reflux disease) (Chronic) HTN (hypertension) (Chronic) CVA (cerebral vascular accident) (Chronic) AMY (obstructive sleep apnea) (Chronic) Hospital Course and Treatment Imaging Results: Clinical Impression(s) from Imaging Studies Brain CT 02/27/19 18:17 IMPRESSION: Subacute infarct in the left thalamus which was better evaluated on the MRI dated 02/19/2019. Stable chronic ischemic and atrophic changes. No acute intracranial abnormality. Electronically Signed: Dell Wadeniurkaliset, at 18:48 EDT Tel , Service support , Operations: None Procedures: None Summary of Care Provided: Pt seen and examined on the day of discharge and appeared to be stable to go to SNF. She denied any complaints. Her vitals were stable. The patient is a 83 year old F pt admitted because of mechanical fall in light of recent diagnosis of subacute infarcts of the left thalamus and putamen. There was no evidence of significant trauma. Here routine blood work was unremarkable. Her vital signs were stable through out the stay. CT brain done and showed the recent infarcts without acute findings. She was denied to go to SNF by her insurance company after the recent stroke. Pt was seen and evaluated by PT OT and she was appropriate for placement to SNF. Pt was to discharged to SNF in a stable medical condition, continued on her home medications without any changes, recommended follow up with PCP in 2 weeks. - Physical Exam Vitals/I&O's: Vital Signs Temp Pulse Resp BP Pulse Ox 98.0 F 61 16 155/74 H 94 03/01/19 09:30 03/01/19 09:30 03/01/19 09:30 03/01/19 09:30 03/01/19 09:30 Oxygen Flow Rate (L/min) 98 Oxygen Delivery Method Room Air Weight: 155 lb 13.869 oz Body Mass Index (BMI) 25.1 Finger Stick Blood Glucose 121 Intake and Output for Last 24 Hours 02/28/19 02/28/19 03/01/19 00:59 23:59 23:59 Intake Total 700 / 700 Output Total 550 / 550 Balance 150 / 150 General: Alert, Cooperative, No apparent distress, Disoriented HEENT: Atraumatic, PERRLA, EOMI, Normocephalic Oral: Moist Mucosa, No Gingival or Mucosal Lesions/ Ulcerations Neck: Supple, No JVD, Negative Carotid Bruits, Trachea Midline, Thyroid Normal Size and Texture Lungs: Clear to auscultation, Normal air movement, No rhonchi, No wheeze, No rales Cardiovascular: Regular rate, Regular Rhythm, Normal S1, Normal S2, PMI Normal Abdomen: Bowel Sounds Present, Soft, Non Tender, Non-Distended, No Hepato-splenomegaly Extremities: No clubbing, No cyanosis, No edema Skin: No rashes, No breakdown Lymphatic: No Cervical, Supraclavicular, or Inguinal Adenopathy Neurological: Cranial nerves II-XII grossly intact, Motor Exam 5/5 strength throughout Psych/Mental Status: Normal Affect, Appropriate Laboratory Results 02/27/19 18:50: Vitamin B12 283, Vitamin D 25-Hydroxy 19.4 L Current Medications Acetaminophen (Tylenol) 650 mg PO Q6H PRN PRN PRN Reason: Pain Score 1-3/Temp > 100.7 F Aspirin (Aspirin, Baby) 81 mg PO DAILY@0800 [facility] Last Admin: 03/01/19 09:32 Dose: 81 mg Documented by: Atorvastatin Calcium (Lipitor) 40 mg PO QHS [facility] Last Admin: 02/28/19 21:35 Dose: 40 mg Documented by: Bupropion HCl (Wellbutrin Tablets) 75 mg PO DAILY [facility] Last Admin: 03/01/19 09:32 Dose: 75 mg Documented by: Carvedilol (Coreg) 25 mg PO DAILYCM [facility] Last Admin: 03/01/19 09:32 Dose: 25 mg Documented by: Dextrose (D50w Syringe) 0 gm IV X1 PRN; Protocol PRN Reason: Hypoglycemia Enoxaparin Sodium (Lovenox) 40 mg SC DAILY@1000 [facility] Last Admin: 03/01/19 09:32 Dose: 40 mg Documented by: Escitalopram Oxalate (Lexapro) 20 mg PO DAILY [facility] Last Admin: 03/01/19 09:31 Dose: 20 mg Documented by: Glucagon () 1 mg IM .X1 PRN PRN Reason: Hypoglycemia Hydralazine HCl (Apresoline Iv) 5 mg IV Q4H PRN PRN PRN Reason: SBP > 160 Sodium Chloride () 250 mls @ 15 mls/hr IV .[id number] PRN PRN Reason: Saline Flush Levothyroxine Sodium (Synthroid) 75 mcg PO DAILY@0600 [facility] Last Admin: 03/01/19 05:53 Dose: 75 mcg Documented by: Lisinopril (Zestril) 10 mg PO DAILY [facility] Last Admin: 03/01/19 09:32 Dose: 10 mg Documented by: Ondansetron HCl (Zofran) 4 mg IV Q8H PRN PRN PRN Reason: NAUSEA/VOMITING Sodium Chloride () 10 - 40 ml IV UD PRN PRN Reason: SALINE FLUSH Last Admin: 02/28/19 16:19 Dose: 10 ml Documented by: Home Medications: Medications to take at Discharge Aspirin [Aspirin, Baby] 81 mg PO DAILY@0800 12/26/15 Levothyroxine [Synthroid] 75 mcg PO DAILY 12/26/15 Lisinopril [Zestril] 10 mg PO DAILY 12/26/15 Bupropion HCl 75 mg PO DAILY 02/18/19 Carvedilol 25 mg PO DAILY 02/18/19 Escitalopram Oxalate 20 mg PO DAILY 02/18/19 Atorvastatin Calcium 40 mg PO QHS 02/27/19 Primary Care Physician: Vaibhav Colvin MD [Primary Care Provider] - Please follow up with your Primary Care Physician in: 2 weeks. Disposition: [facility] facility Minutes spent on discharge:: 25 Patient Condition:: Stable Medical Necessity - Tobacco Use Smoking Status: Former smoker Meaningful Use Info Meaningful Use Diagnoses (Choose all that apply): None applicable Code Visit OBSV E&M: 03352 Observation care discharge
--- NOTE | 2019-03-01 16:05 | CASEMGMT ---
Social Work Note ZABRINA received call from [place] at [facility] stating pre-cert has been obtained and pt can discharge to [facility] today. Physician updated. ZABRINA faxed completed discharge paperwork to [facility] including transfer to extended care facility, signed medication list and any scripts. Original in SNF folder and copy on pt's chart. Pt does have dementia and can be transported via cot. ZABRINA placed a call to [facility] and arranged transportation via cot for 5:00pm. Transportation form completed and placed on SNF folder and copy on pt's chart. ZABRINA completed PAS/RR in [facility]ENS. Original in SNF folder and copy on pt's chart. ZABRINA placed a call to pt's son Dion (HCPOA) and updated him that [facility] is able to accept pt and pre-cert has been submitted and obtained. ZABRINA updated Dion on transportation time. RN and Verona at [facility] updated on transportation time. Plan: Discharge to [facility] skilled today with [facility] transporting via cot at 5:00pm Amanda Gallegos [employer], [employer]
--- NOTE | 2019-03-01 16:33 | NURSING ---
report called to Marisela at [facility]
== END 2019-03-01 17:10 | disposition skilled nursing facility (03) ==
LOC: ED 19:59 → MS3 20:49
PROVIDERS: Admitting Provider Hospitalist; Emergency Provider Emergency Medicine; Family Provider Internal Medicine; PCP Internal Medicine; Referring Provider Hospitalist; Visit Provider Hospitalist
DX: R53.1 Weakness (principal); F03.90 Unspecified dementia, unspecified severity, without behavioral disturbance, psychotic disturbance, mood disturbance, and anxiety; Z91.81 History of falling; F32.9 Major depressive disorder, single episode, unspecified; F41.9 Anxiety disorder, unspecified; I10 Essential (primary) hypertension; E03.9 Hypothyroidism, unspecified; K21.9 Gastro-esophageal reflux disease without esophagitis; G47.33 Obstructive sleep apnea (adult) (pediatric); R47.81 Slurred speech; E78.5 Hyperlipidemia, unspecified; Z86.73 Personal history of transient ischemic attack (TIA), and cerebral infarction without residual deficits; Z87.891 Personal history of nicotine dependence; Z79.899 Other long term (current) drug therapy; Z79.82 Long term (current) use of aspirin
CPT/HCPCS: 70450; 80048; 81001; 82306; 82607; 84443; 85025; 96372; 97116; 97162; 97165; 97530; 99218; 99285; J7030; A4216; G0378

== ENCOUNTER 2020-12-04 20:07 | Emergency (ER) | payer MEDICARE, SELFPAY ==
[2019-02-27 21:13] VITALS: BMI 25.1
[2020-12-04 20:09] VITALS: BP 158/89; PULSE 77; RESP 18; TEMP 36.8; O2SAT 99; BMI 25.4
[2020-12-04 21:31] VITALS: BP 144/80; PULSE 72; RESP 16; O2SAT 96
--- NOTE | 2020-12-04 22:20 | CT_ITS ---
EXAMINATION : Head CT w/out contrast HISTORY : decreased level of consciousness COMPARISON : 02/27/2019. TECHNIQUE : Multiple contiguous axial images were obtained from the skull base to the vertex without intravenous contrast. A radiation dose optimization technique was used for this scan. FINDINGS : There is no evidence for acute intracranial hemorrhage, mass effect, or midline shift. There is no extra-axial fluid collection. There are periventricular white matter changes consistent with chronic microvascular ischemic disease. There is sulcal widening and ventricular enlargement consistent with cerebral atrophy. There is normal hernandez-white differentiation, without CT evidence of acute ischemia or infarct. Old lacunar infarcts in the bilateral lenticular nuclei. The skull base and calvarium are unremarkable. The orbits are unremarkable. The paranasal sinuses are clear. The mastoid air cells are well-aerated. The soft tissues are unremarkable. CT/Brain/Head without Contrast IMPRESSION: No acute intracranial abnormality. Old lacunar infarcts in the bilateral lenticular nuclei. Chronic involutional and ischemic changes of the brain. Electronically Signed: London Henriquez MD at 23:17 EDT Tel , Service support ,
--- NOTE | 2020-12-04 22:20 | EKG12_ITS ---
Test Reason : SYNCOPE Blood Pressure : / mmHG Vent. Rate : 069 BPM Atrial Rate : 069 BPM P-R Int : 144 ms QRS Dur : 074 ms QT Int : 416 ms P-R-T Axes : 003 025 050 degrees QTc Int : 445 ms Normal sinus rhythm Normal ECG Confirmed by ROSE BAER, YAJAIRA ([id number]), desk editor CHANDA PORTILLO ([id number]) on 12/06/2020 10:43:20 AM Referred By: KAI Confirmed By:YAJAIRA ROSE MD
--- NOTE | 2020-12-04 22:20 | RAD_ITS ---
STUDY: X-RAY CHEST REASON FOR EXAM: Female, 85 years old. sob TECHNIQUE: Single AP portable view of the chest. COMPARISON: 02/18/2019 FINDINGS: The lungs are clear and expanded. There is no demonstrated pleural abnormality. Normal size heart. Normal mediastinum and christos. Normal visualized pulmonary arteries. Normal visualized aortic arch and descending thoracic aorta. Normal visualized thoracic spine. Normal visualized ribs, clavicles, and shoulders. There is no demonstrated abnormality of the visualized soft tissue structures of the upper abdomen. RAD/Chest 1 View (Portable) IMPRESSION: Normal x-ray examination of the chest. Electronically Signed: Klaus Rodriguez MD at 23:37 EDT , Service support ,
[2020-12-04 22:40] LABS: Absolute Lymphocyte Count 3.14 X10^3/uL (0.83-4.51); Basophil# 0.06 X10^3/uL; Basophil% 0.6 % (0-1); Eosinophil# 0.41 X10^3/uL; Eosinophils% 4.3 % (0-5); Hematocrit 45.8 % (37-47); Hemoglobin 14.5 g/dL (12.0-15.0); Lymphocyte # 3.14 X10^3/ul (0.83-4.51); Lymphocyte % 33.1 % (19-41); Mean Corp Hgb Conc 31.7 g/dL (32-36); Mean Corpuscular Hgb 28.9 pg (27.0-32.0); Mean Corpuscular Volume 91.4 fL (81-99); Mean Platelet Vol. 9.9 fl (6.2-12.0); Monocyte# 0.82 X10^3/uL; Monocyte% 8.6 % (0-10); NRBC Flagged by Analyzer 0 % (0-5); Neutrophil # 5.01 X10^3/uL (2.7-7.7); Platelet Count 314 K/mm3 (150-450); RBC Distribution Width CV 13.4 % (11.6-14.6); RBC Distribution Width SD 45.5 fl (35.1-43.9); Red Blood Count 5.01 M/mm3 (4.2-5.4); White Blood Count 9.5 K/mm3 (4.4-11.0)
--- NOTE | 2020-12-04 22:45 | EX.ED.DYSGE1 ---
HPI History of Present Illness Chief Complaint: Syncope Informant: patient and family Onset/Context/Timing Onset: Today Narrative Narrative: Patient presents secondary to an unresponsive episode. Family member states she was sitting upright in a chair. She made a moaning sound and became unresponsive. They states she started than rubbing her face and coming back around. No seizure activity was noted. No postictal period was noted. Patient does have a history of TIAs and they were concerned this might be the etiology of her symptoms today. The time of my examination patient states she feels back to baseline. She does not remember the events leading up to the episode. [facility] Medical History Anxiety CVA (cerebral vascular accident) GERD (gastroesophageal reflux disease) HTN (hypertension) Hypothyroidism Mini stroke Home Medications aspirin 81 mg PO DAILY@0800 12/26/15 [History Last Taken 02/27/19 08:00 81 mg] levothyroxine 75 mcg PO DAILY 12/26/15 [History Last Taken 02/27/19 08:00 75 mg] lisinopril 40 mg PO DAILY 12/26/15 [History Last Taken 02/27/19 08:00 10 mg] amlodipine 5 mg PO DAILY 12/04/20 [History Last Taken Unknown] memantine 10 mg PO BID 12/04/20 [History Last Taken Unknown] mirtazapine 15 mg PO QHS 12/04/20 [History Last Taken Unknown] Allergy/AdvReac Type Severity Reaction Status Date / Time sulfamethoxazole Allergy Unknown Verified 12/04/20 20:13 [From ] trimethoprim [From ] Allergy Unknown Verified 12/04/20 20:13 venom-honey bee Allergy Hives Verified 12/04/20 20:13 [bee venom (honey bee)] Social History Smoking Status: Former smoker ROS ROS ED Constitutional Constitutional ED: Denies chills or fever(s) Eyes Eyes: Denies change in vision ENT ENT ED: Denies ear pain or sore throat Cardiovascular Cardiovascular: Denies chest pain or palpitations Respiratory/Chest Respiratory/Chest: Denies cough or dyspnea Gastrointestinal Gastrointestinal: Denies abdominal pain, diarrhea or vomiting Genitourinary Genitourinary ED: Denies dysuria Musculoskeletal Musculoskeletal: Denies back pain or neck pain Integumentary Denies rash Neurologic Neurologic: Denies headache(s) or weakness Psychiatric Psychiatric: Denies anxiety or depression Allergic/Immunologic Allergic/Immunologic ED: Denies urticaria EXAM Physical Exam Const Vital Signs: 12/04/20 20:09 12/04/20 21:31 12/04/20 21:32 Temperature 98.3 F Temperature Source Temporal Pulse Rate 77 72 Respiratory Rate 18 16 Respiratory Effort Normal Non-Labored Respiratory Pattern Normal Blood Pressure 158/89 H 144/80 H Blood Pressure Mean 112 101 Pulse Ox 99 96 Oxygen Delivery Method Room Air Room Air 12/05/20 00:42 Temperature Temperature Source Pulse Rate 71 Respiratory Rate 18 Respiratory Effort Respiratory Pattern Blood Pressure 163/80 H Blood Pressure Mean 107 Pulse Ox 97 Oxygen Delivery Method Room Air Positive well nourished and well developed General Appearance ED: well developed Eyes PERRL and EOMs intact bilaterally Neck supple Chest Wall inspection of chest normal and palpation of chest normal Resp normal respiratory effort and clear to auscultation bilaterally Cardio regular rate and regular rhythm GI normal to inspection, nondistended, normoactive bowel sounds and non-tender Palpation: soft Extremity normal to inspection Neuro oriented x3 Neuro Narrative: No focal neurologic deficits. Sensorium / Orientation: alert Psych mental status grossly normal Skin no rashes or lesions noted MDM MDM MDM Narrative Medical decision making narrative: EKG, labs, head CT ordered. Lab Data Attestation: I reviewed the patient's lab results. Labs: Laboratory Results - last 24 hr 12/04/20 12/04/20 12/04/20 20:23 20:23 22:30 WBC 9.5 RBC 5.01 Hgb 14.5 Hct 45.8 MCV 91.4 MCH 28.9 MCHC 31.7 L RDW Std Deviation 45.5 H RDW Coeff of Cirilo 13.4 Plt Count 314 MPV 9.9 Immature Gran % (Auto) 0.400 Neut % (Auto) 53.0 Lymph % (Auto) 33.1 Mcintosh % (Auto) 8.6 Eos % (Auto) 4.3 Baso % (Auto) 0.6 Absolute Neuts (auto) 5.0 Absolute Lymphs (auto) 3.14 Nucleated RBC % 0 D-Dimer Quant (PE/DVT) 2.88 H* Sodium 138 Potassium 3.6 Chloride 104 Carbon Dioxide 29.0 Anion Gap 5 BUN 15 Creatinine 0.77 Estim Creat Clear Calc 37.80 Est GFR (MDRD) Af Amer 91 Est GFR (MDRD) Non-Af 75 BUN/Creatinine Ratio 19.4 Glucose 190 H Calcium 9.2 Troponin I High Sens 5.9 Radiography Chest X-Ray - ED: 1 View, Read by ED Physician and Chronic Changes Diagnostic Testing: Radiology Impression Brain CT 12/04/20 22:20 IMPRESSION: No acute intracranial abnormality. Old lacunar infarcts in the bilateral lenticular nuclei. Chronic involutional and ischemic changes of the brain. Electronically Signed: London Henriquez MD at 23:17 EDT Tel , Service support , Chest X-Ray 12/04/20 22:20 IMPRESSION: Normal x-ray examination of the chest. Electronically Signed: Klaus Rodriguez MD at 23:37 EDT , Service support , Chest CTA 12/05/20 23:37 IMPRESSION: Normal CTA chest examination, without a demonstrated pulmonary embolism, aortic aneurysm, or aortic dissection. . Mild fibrotic and emphysematous changes in the lungs. Old granulomatous disease. Atherosclerosis. No evidence for acute cardiopulmonary pathology. Electronically Signed: Dao Vasquez MD at 1:30 EDT , Service support , EKG Initial EKG: Attestation: I personally reviewed and interpreted this EKG as follows: Interpretation: Sinus Rhythm (Sinus at 69 with no acute ischemia.) Treatment and Re-Evaluation Comments:: Patient has been on secured entrance monitor throughout her ED stay with no arrhythmias. Her exam remains normal throughout her ED stay. Lab work was reviewed with patient and family at bedside. At this time they are comfortable caring for her at home. Other than observing her on secured entrance monitor for the overnight hours I do not anticipate much will change if she was brought into the hospital. They were given close return instructions and are comfortable with this plan. Discharge Plan Triage Chief Complaint: Syncope ED Provider: Darlene Dickerson Dx/Rx/DC Orders Clinical Impression: Syncope Instructions: ED Fainting, Uncertain Cause Prescriptions: No Action levothyroxine 75 MCG tablet 75 mcg PO DAILY RF: 0 aspirin 81 MG tablet,chewable 81 mg PO DAILY@0800 RF: 0 lisinopril 5 MG tablet 40 mg PO DAILY RF: 0 amlodipine 5 mg tablet 5 mg PO DAILY RF: 0 mirtazapine 15 mg Tablet 15 mg PO QHS RF: 0 memantine 10 mg Tablet 10 mg PO BID RF: 0 Primary Care Provider: Vaibhav Colvin Referrals: Vaibhav Colvin MD [Primary Care Provider] - 1 Week Disposition Disposition: Home, Self Care
[2020-12-04 22:53] LABS: Anion Gap 5 (5-15); BUN 15 mg/dL (7-18); BUN/Creat Ratio 19.4 RATIO (10-20); Calcium,Total 9.2 mg/dL (8.5-10.1); Chloride 104 mmol/L (98-107); Creatinine, Serum 0.77 mg/dL (0.55-1.02); EST Glomerular Filtration Rate 75 mL/min (>60); Est Glom Filt Rate - Afr Amer 91 mL/min (>60); Glucose 190 mg/dL (74-106); Potassium 3.6 mmol/L (3.5-5.1); Sodium Level 138 mmol/L (136-145); Troponin-I HS 5.9 pg/mL (3.0-53.7)
[2020-12-04 22:58] LABS: D-Dimer Quantitative (DVT/PE) 2.88 FEU/ug/m (0.27-0.49)
[2020-12-04] MEDS: 0.9% Normal Saline 1,000 ML 150 ML IV (23:05)
[2020-12-05 00:42] VITALS: BP 163/80; PULSE 71; RESP 18; O2SAT 97
[2020-12-05 01:40] VITALS: BP 154/78; PULSE 74; RESP 15; O2SAT 98
--- NOTE | 2020-12-05 23:37 | CT_ITS ---
STUDY: CTA CHEST REASON FOR EXAM: Female, 85 years old. pe. Shortness of breath. RADIATION DOSAGE (If Supplied By Facility): CTDIvol = ( 9.4 ) mGy, DLP = ( 332.79 ) mGycm TECHNIQUE: The examination was performed with the intravenous administration of IV 100mL Isovue-370. Post-processing of the angiographic images was performed, with multiplanar reformation, but without 3D reconstruction. Individualized dose optimization techniques were used for this CT. COMPARISON: Chest x-ray 12/04/2020.. CTA chest 12/26/2015. FINDINGS: There is a right thyroid nodule, which was also present in 2016 and it is not significantly changed. Normal enhancement of the main pulmonary artery and right and left pulmonary arteries. Normal enhancement of the bilateral peripheral pulmonary arteries. There is no demonstrated pulmonary embolism. There is mild after scrubbing calcification of the thoracic aorta and visualized great vessels. There is no demonstrated aortic dissection. Normal heart and pericardium. There are calcified granulomas in the mediastinum and hilar regions. Normal visualized trachea and bronchi. The lungs are well expanded. There are calcified pulmonary granulomas. There are areas of bronchiectasis adjacent to a right lower lobe granuloma.. There are mild fibrotic changes in the lungs. There is no demonstrated acute pulmonary infiltrate. Normal pleura. Normal chest wall structures. The multilevel degenerative changes in thoracic spine. There is a compression fracture of the 10th thoracic vertebra which was not present into 2016, but does appear to be chronic. There is fatty infiltration of liver. There are calcified granulomas in the spleen and liver. There are calcifications in the pancreas consistent with chronic pancreatitis. CT/CTA Chest W/WO Contrast IMPRESSION: Normal CTA chest examination, without a demonstrated pulmonary embolism, aortic aneurysm, or aortic dissection. . Mild fibrotic and emphysematous changes in the lungs. Old granulomatous disease. Atherosclerosis. No evidence for acute cardiopulmonary pathology. Electronically Signed: Dao Vasquez MD at 1:30 EDT , Service support ,
== END 2020-12-05 01:41 | disposition home or self-care (01) ==
PROVIDERS: Emergency Provider Emergency Medicine; PCP Internal Medicine
DX: R55 Syncope and collapse (principal); I67.82 Cerebral ischemia; E03.9 Hypothyroidism, unspecified; F41.9 Anxiety disorder, unspecified; I10 Essential (primary) hypertension; K21.9 Gastro-esophageal reflux disease without esophagitis; Z79.82 Long term (current) use of aspirin; Z79.899 Other long term (current) drug therapy; Z86.73 Personal history of transient ischemic attack (TIA), and cerebral infarction without residual deficits; Z87.891 Personal history of nicotine dependence
CPT/HCPCS: 70450; 71045; 71275; 80048; 84484; 85025; 85379; 93005; 99285; J7030; Q9967; A4216

== ENCOUNTER 2021-11-14 10:26 | Emergency (ER) | payer MEDICARE, SELFPAY ==
[2021-11-14 10:27] VITALS: BP 108/76; PULSE 85; RESP 16; TEMP 36; O2SAT 99; BMI 21.3
--- NOTE | 2021-11-14 10:40 | CT_ITS ---
STUDY: CT ABDOMEN AND PELVIS WITH CONTRAST REASON FOR EXAM: Female, 86 years old. Abdominal pain, rectal bleeding RADIATION DOSAGE (If Supplied By Facility): CTDIvol = ( 8.53 ) mGy, DLP = ( 417.18 ) mGycm TECHNIQUE: Transaxial images were obtained from the dome of the diaphragm to the symphysis pubis without oral contrast. IV 100mL Isovue-300 was administered. Sagittal and coronal images were reconstructed. Individualized dose optimization techniques were used for this CT. COMPARISON: Comparison is made with prior study 12/26/2015. FINDINGS: The visualized lung bases are unremarkable. The visualized portions of the heart are within normal limits. There is decreased attenuation of the liver consistent with steatosis. Normal gallbladder and extrahepatic biliary system. Normal spleen. Normal pancreas. Normal bilateral adrenal glands. Small bilateral parapelvic renal cysts. Normal visualized stomach. Normal small intestine. There is diverticulosis, with thickening of the colon wall, and pericolonic inflammation changes consistent with acute diverticulitis. Large amount of fecal material is seen in the colon. The appendix is visualized and appears normal. There is diffuse atherosclerotic calcification of the abdominal aorta, without a demonstrated aneurysm. Normal inferior vena cava. Normal retroperitoneum. Normal urinary bladder. Normal abdominal wall. Disc space narrowing and degeneration at the L4-L5 and L5-S1 levels. CT/Abdomen/Pelvis W IV Cont ONLY IMPRESSION: Sigmoid diverticulosis with mild increased markings in the surrounding peritoneal fat suggestive of a noncomplicated sigmoid diverticulitis. Large amount of fecal material seen in the colon. Fatty infiltration of the liver. Electronically Signed: Marcell Trimble MD at 12:45 EDT ,
--- NOTE | 2021-11-14 10:41 | EDS_ITS ---
HPI HPI - GI History of Present Illness Chief Complaint: GI Bleed Detail of Chief Complaint: Rectal bleeding for 1 month Informant: patient and family Narrative Narrative: Patient presents with rectal bleeding that started 1 month ago. A lot of the history comes from patient's son who is the caregiver. Patient has been having her depends changed 5 or 6 times a day and its diarrhea-like stool with bright red blood. Patient recently had a boil on her buttocks for which she was on antibiotics for a week that she finished a week ago. Patient denies any fevers. She has had intermittent abdominal pain but denies pain currently. It is unclear if she is ever had a colonoscopy or history of diverticulitis. Patient's son called the primary care physician today and they were told to be evaluated in the emergency department. [facility] Medical History Anxiety CVA (cerebral vascular accident) GERD (gastroesophageal reflux disease) HTN (hypertension) Hypothyroidism Mini stroke Home Medications aspirin 81 mg chewable tablet 81 mg PO DAILY@0800 12/26/15 [History Last Taken 02/27/19 08:00 81 mg] levothyroxine 75 mcg tablet 75 mcg PO DAILY thyroid 12/26/15 [History Last Taken 02/27/19 08:00 75 mg] lisinopril 5 mg tablet 40 mg PO DAILY BP 12/26/15 [History Last Taken 02/27/19 08:00 10 mg] amlodipine 5 mg tablet 5 mg PO DAILY 12/04/20 [History Last Taken Unknown] memantine 10 mg tablet 10 mg PO BID 12/04/20 [History Last Taken Unknown] mirtazapine 15 mg tablet 15 mg PO QHS 12/04/20 [History Last Taken Unknown] ciprofloxacin HCl 500 mg tablet (Cipro) 500 mg PO BID #20 tabs 11/14/21 [Rx Last Taken Unknown] metronidazole 500 mg tablet 500 mg PO TID #30 tabs 11/14/21 [Rx Last Taken Unknown] Allergy/AdvReac Type Severity Reaction Status Date / Time sulfamethoxazole Allergy Unknown Verified 11/14/21 10:30 [From ] trimethoprim [From ] Allergy Unknown Verified 11/14/21 10:30 venom-honey bee Allergy Hives Verified 11/14/21 10:30 [bee venom (honey bee)] Social History Smoking Status: Former smoker ROS ROS ED Review of Systems ROS Unobtainable: other Constitutional Constitutional ED: Reports lethargy; Denies chills, fever(s), sweats or weight loss Eyes Eyes: Denies blurry vision, change in vision or diplopia ENT ENT ED: Denies rhinorrhea or sore throat Cardiovascular Cardiovascular: Reports chest pain and racing heartbeat; Denies orthopnea Respiratory/Chest Respiratory/Chest: Reports dyspnea and dyspnea on exertion; Denies cough, orthopnea or sputum Gastrointestinal Gastrointestinal: Reports abdominal pain, diarrhea and other Details: Bright red blood per rectum ; Denies nausea or vomiting Genitourinary Genitourinary ED: Denies dysuria, hematuria or urinary frequency Musculoskeletal Musculoskeletal: Denies arthralgias, back pain, myalgias or neck pain Integumentary Denies abscess, Abrasions or rash Neurologic Neurologic: Denies headache(s) or weakness Psychiatric Psychiatric: Denies anxiety, depression or suicidal thoughts Endocrine Endocrinology: Denies polydipsia, polyphagia or polyuria Hematologic/Lymphatic Hematologic/Lymphatic: Denies easy bleeding, easy bruising or lymphadenopathy Allergic/Immunologic Allergic/Immunologic ED: Denies mouth swelling, tongue swelling or urticaria EXAM Physical Exam Const Vital Signs: 11/14/21 10:27 11/14/21 11:19 Temperature 96.8 F L Temperature Source Temporal Pulse Rate 85 Pulse Rate [Lying] 75 Pulse Rate [Sitting (for 1 minute prior to obtaining)] 76 Pulse Rate [Standing (for 1 minute prior to obtaining)] 87 Respiratory Rate 16 Blood Pressure 108/76 Blood Pressure [Lying] 132/67 H Blood Pressure [Sitting (for 1 minute prior to obtaining)] 132/71 H Blood Pressure [Standing (for 1 minute prior to obtaining)] 113/79 Blood Pressure Mean 86 Blood Pressure Mean [Lying] 88 Blood Pressure Mean [Sitting (for 1 minute prior to obtaining)] 91 Blood Pressure Mean [Standing (for 1 minute prior to obtaining)] 90 Pulse Ox 99 Oxygen Delivery Method Room Air Positive well nourished and well developed General Appearance ED: well developed and NAD HEENT Reports TM's clear and moist mucous membranes normocephalic and atraumatic; Negative for trauma or tenderness Tympanic Membrane ED: Yes TM's clear Eyes PERRL and EOMs intact bilaterally General Eye ED: Negative for pale conjunctiva or scleral icterus Neck no lymphadenopathy, supple and no JVD General: Negative for tenderness Chest Wall inspection of chest normal and palpation of chest normal Chest: Negative for tenderness Resp normal respiratory effort and clear to auscultation bilaterally Effort and Inspection: Negative for respiratory distress or pain with movement Auscultation: Negative for rhonchi, wheezes or diminished lung sounds Cardio regular rate, regular rhythm, S1 normal heart sound, S2 normal heart sound and no murmurs Peripheral Pulses: pulses 2+ throughout GI normal to inspection, nondistended, normoactive bowel sounds, soft to palpation, non-tender, non-distended and no masses Back/Spine no CVA tenderness and no thoracic nor lumbar tenderness Extremity normal to inspection General Extremety ED: Negative for edema General Extremity: Negative for edema Neuro oriented x3, CN's II-XII intact bilaterally, no sensory deficits noted and gait normal Sensorium / Orientation: awake, alert, oriented to person, oriented to place and oriented to time Motor Exam: strength 5/5 throughout and strength abnormal Psych mental status grossly normal Skin no rashes or lesions noted and no wounds MDM MDM MDM Narrative Medical decision making narrative: IV established on arrival. Patient lab work showed normal white blood cell count and normal hemoglobin of 12.6. Lactate was normal at 1.7. Chemistries unremarkable. Hemoccult stool was positive. CT scan of the abdomen pelvis interpreted by radiology as mild inflammation along the left side of the colon which may indicate acute uncomplicated diverticulitis. I had ordered stool for C. difficile as well as enteric pathogens however patient as of yet has been unable to give a sample. I will discuss case with GI to arrange close follow- up. I will write him a prescription to bring in a stool sample. Patient will be started on Cipro and Flagyl p.o. Lab Data Attestation: I reviewed the patient's lab results. Labs: Laboratory Results - last 24 hr 11/14/21 11/14/21 11/14/21 11:05 11:05 11:05 WBC 7.3 RBC 4.36 Hgb 12.6 Hct 39.5 MCV 90.6 MCH 28.9 MCHC 31.9 L RDW Std Deviation 44.4 H RDW Coeff of Cirilo 13.3 Plt Count 347 MPV 9.4 Immature Gran % (Auto) 0.400 Neut % (Auto) 63.8 Lymph % (Auto) 24.5 [place] % (Auto) 7.1 Eos % (Auto) 3.7 Baso % (Auto) 0.5 Absolute Neuts (auto) 4.7 Absolute Lymphs (auto) 1.80 Nucleated RBC % 0 Sodium 139 Potassium 4.2 Chloride 105 Carbon Dioxide 28.0 Anion Gap 6 BUN 11 Creatinine 0.87 Estim Creat Clear Calc 42.65 Est GFR (MDRD) Af Amer 79 Est GFR (MDRD) Non-Af 66 BUN/Creatinine Ratio 12.7 Glucose 203 H Lactic Acid 1.7 Calcium 9.2 Blood Type Antibody Screen 11/14/21 11:05 WBC RBC Hgb Hct MCV MCH MCHC RDW Std Deviation RDW Coeff of Cirilo Plt Count MPV Immature Gran % (Auto) Neut % (Auto) Lymph % (Auto) [place] % (Auto) Eos % (Auto) Baso % (Auto) Absolute Neuts (auto) Absolute Lymphs (auto) Nucleated RBC % Sodium Potassium Chloride Carbon Dioxide Anion Gap BUN Creatinine Estim Creat Clear Calc Est GFR (MDRD) Af Amer Est GFR (MDRD) Non-Af BUN/Creatinine Ratio Glucose Lactic Acid Calcium Blood Type O POSITIVE Antibody Screen NEGATIVE Radiography Diagnostic Testing: Clinical Impression(s) from Imaging Studies Abdomen/Pelvis CT 11/14/21 10:40 IMPRESSION: Sigmoid diverticulosis with mild increased markings in the surrounding peritoneal fat suggestive of a noncomplicated sigmoid diverticulitis. Large amount of fecal material seen in the colon. Fatty infiltration of the liver. Electronically Signed: Marcell Trimble MD at 12:45 EDT , Discharge Plan Triage Chief Complaint: GI Bleed ED Provider: Melvin Zimmer Dx/Rx/DC Orders Clinical Impression: GI bleeding, Acute diverticulitis, Diarrhea Instructions: ED Diverticulitis, ED Lower GI Bleeding (Stable) Prescriptions: New ciprofloxacin HCl [Cipro] 500 mg tablet 500 mg PO BID Qty: 20 0RF metronidazole 500 mg tablet 500 mg PO TID Qty: 30 0RF No Action levothyroxine 75 MCG tablet 75 mcg PO DAILY Label Comments: THYROID aspirin 81 MG tablet,chewable 81 mg PO DAILY@0800 Label Comments: blood thinner lisinopril 5 MG tablet 40 mg PO DAILY Label Comments: blood pressure amlodipine 5 mg tablet 5 mg PO DAILY Label Comments: TAKE 1 TABLET BY MOUTH EVERY DAY mirtazapine 15 mg Tablet 15 mg PO QHS memantine 10 mg Tablet 10 mg PO BID Primary Care Provider: Vaibhav Colvin Referrals: Friend,DO Michele [STAFF PHYSICIAN] - 3-5 Days Vaibhav Colvin MD [Primary Care Provider] - Disposition Disposition: Home, Self Care
[2021-11-14] MEDS: 0.9% Normal Saline 1,000 ML 125 ML IV (11:15)
[2021-11-14 11:19] VITALS: BP 113/79; BP 132/67; BP 132/71; PULSE 75; PULSE 76; PULSE 87
[2021-11-14 11:22] LABS: Absolute Neutrophil Count 4.7 X10^3/uL (2.0-7.7); Basophil# 0.04 X10^3/uL; Basophil% 0.5 % (0-1); Eosinophil# 0.27 X10^3/uL; Eosinophils% 3.7 % (0-5); Hematocrit 39.5 % (37-47); Hemoglobin 12.6 g/dL (12.0-15.0); Lymphocyte % 24.5 % (19-41); Mean Corp Hgb Conc 31.9 g/dL (32-36); Mean Corpuscular Hgb 28.9 pg (27.0-32.0); Mean Corpuscular Volume 90.6 fL (81-99); Mean Platelet Vol. 9.4 fl (6.2-12.0); Monocyte# 0.52 X10^3/uL; Monocyte% 7.1 % (0-10); NRBC Flagged by Analyzer 0 % (0-5); Neutrophil # 4.68 X10^3/uL (2.7-7.7); Neutrophil % 63.8 % (47-70); Platelet Count 347 K/mm3 (150-450); RBC Distribution Width CV 13.3 % (11.6-14.6); RBC Distribution Width SD 44.4 fl (35.1-43.9); Red Blood Count 4.36 M/mm3 (4.2-5.4); White Blood Count 7.3 K/mm3 (4.4-11.0)
[2021-11-14 11:37] LABS: Anion Gap 6 (5-15); BUN 11 mg/dL (7-18); BUN/Creat Ratio 12.7 RATIO (10-20); Calcium,Total 9.2 mg/dL (8.5-10.1); Chloride 105 mmol/L (98-107); Creatinine, Serum 0.87 mg/dL (0.55-1.02); EST Glomerular Filtration Rate 66 mL/min (>60); Est Glom Filt Rate - Afr Amer 79 mL/min (>60); Estimated Creatinine Clearance 42.65 ml/min; Glucose 203 mg/dL (74-106); Potassium 4.2 mmol/L (3.5-5.1); Sodium Level 139 mmol/L (136-145)
[2021-11-14 11:48] LABS: Lactic Acid 1.7 mmol/L (0.4-1.9)
[2021-11-14 13:00] VITALS: BP 130/74; PULSE 75
== END 2021-11-14 13:57 | disposition home or self-care (01) ==
PROVIDERS: Emergency Provider Emergency Medicine; PCP Internal Medicine; Visit Provider Emergency Medicine
DX: K92.2 Gastrointestinal hemorrhage, unspecified (principal); Z87.891 Personal history of nicotine dependence; K57.92 Diverticulitis of intestine, part unspecified, without perforation or abscess without bleeding; I10 Essential (primary) hypertension; R19.7 Diarrhea, unspecified; Z86.73 Personal history of transient ischemic attack (TIA), and cerebral infarction without residual deficits; E03.9 Hypothyroidism, unspecified; K21.9 Gastro-esophageal reflux disease without esophagitis
CPT/HCPCS: 74177; 80048; 82274; 83605; 85025; 86850; 86900; 86901; 87493; 87506; 99283; Q9967; A4216

== ENCOUNTER → 2022-01-08 | Outpatient (CLI) | payer MEDICARE, SELFPAY ==
[2022-01-08 14:40] LABS: Absolute Lymphocyte Count 2.95 X10^3/uL (0.83-4.51); Absolute Neutrophil Count 6.6 X10^3/uL (2.0-7.7); Basophil# 0.04 X10^3/uL; Basophil% 0.4 % (0-1); Eosinophil# 0.39 X10^3/uL; Eosinophils% 3.6 % (0-5); Hematocrit 41.8 % (37-47); Hemoglobin 13.2 g/dL (12.0-15.0); Lymphocyte # 2.95 X10^3/ul (0.83-4.51); Mean Corp Hgb Conc 31.6 g/dL (32-36); Mean Corpuscular Volume 88.6 fL (81-99); Mean Platelet Vol. 8.8 fl (6.2-12.0); Monocyte# 0.94 X10^3/uL; Monocyte% 8.6 % (0-10); NRBC Flagged by Analyzer 0 % (0-5); Neutrophil # 6.56 X10^3/uL (2.7-7.7); Platelet Count 431 K/mm3 (150-450); RBC Distribution Width CV 13.2 % (11.6-14.6); Red Blood Count 4.72 M/mm3 (4.2-5.4); White Blood Count 10.9 K/mm3 (4.4-11.0)
== END | disposition home or self-care (01) ==
LOC: LAB 14:25
PROVIDERS: PCP Internal Medicine; Visit Provider Internal Medicine Gastroenterology
DX: K92.2 Gastrointestinal hemorrhage, unspecified (principal)
CPT/HCPCS: 36415; 85025

== ENCOUNTER 2022-01-17 12:54 | Emergency (ER) | payer MEDICARE, SELFPAY ==
[2022-01-17 12:55] VITALS: BP 136/78; PULSE 94; RESP 16; TEMP 36.2; O2SAT 97; BMI 22.6
--- NOTE | 2022-01-17 13:53 | RAD_ITS ---
INDICATION: CAD EXAMINATION/TECHNIQUE: X-RAY - XR Chest 1 View COMPARISON: 12/04/2020. FINDINGS: LINES/DEVICES: None. LUNGS: Biapical prominence is seen. Peribronchial cuffing and mild bilateral hilar prominence is visualized that demonstrate no significant change in comparison to the prior study. No consolidation, edema or effusion. No pneumothorax. MEDIASTINUM AND CARDIOVASCULAR STRUCTURES: Cardiac silhouette not enlarged. Central airways and mediastinal contour are unremarkable. BONES AND SOFT TISSUES: Unremarkable. RAD/Chest 1 View (Portable) IMPRESSION: No radiographic evidence of acute cardiopulmonary disease. Electronically Signed: Kermit Hess MD at 15:11 EDT ,
--- NOTE | 2022-01-17 13:54 | EDS_ITS ---
HPI History of Present Illness Chief Complaint: Weakness Narrative Narrative: History and physical is limited secondary to dementia. According to her son who is her primary caregiver, patient has had functional decline and ability to ambulate over the last week. She has had frequent falls at home. He states that he wanted to get a wheelchair written by his primary care physician, but they suggested that he come to the emergency department for her to be evaluated and recommendation for wheelchair. He does not want her to be admitted to a jail and states that he has been taking care of her for the last 3 years, and feels she would be more comfortable at home. Additionally, he denies that she has had fever or chills. She is being treated for diverticulitis and is on day 9 of antibiotics. No fevers or chills, no nausea or vomiting but she has had intermittent episodes of diarrhea that are nonbloody with her treatment for diverticulitis. He denies that she has had dysuria or loss of bowel or bladder or any other symptoms except for generalized weakness and functional decline. [facility] Medical History Anxiety CVA (cerebral vascular accident) Dementia Diverticulitis GERD (gastroesophageal reflux disease) HTN (hypertension) Hypothyroidism Mini stroke Home Medications aspirin 81 mg chewable tablet 81 mg PO DAILY@0800 12/26/15 [History Last Taken 02/27/19 08:00 81 mg] levothyroxine 75 mcg tablet 75 mcg PO DAILY thyroid 12/26/15 [History Last Taken 02/27/19 08:00 75 mg] lisinopril 5 mg tablet 40 mg PO DAILY BP 12/26/15 [History Last Taken 02/27/19 08:00 10 mg] memantine 10 mg tablet 5 mg PO BID 12/04/20 [History Last Taken Unknown] mirtazapine 15 mg tablet 15 mg PO QHS 12/04/20 [History Last Taken Unknown] ciprofloxacin HCl 500 mg tablet (Cipro) 500 mg PO BID #20 tabs 01/08/22 [Rx Last Taken Unknown] metronidazole 500 mg tablet 500 mg PO TID #30 tabs 01/08/22 [Rx Last Taken Unknown] Allergy/AdvReac Type Severity Reaction Status Date / Time sulfamethoxazole Allergy Unknown Verified 01/17/22 13:02 [From ] trimethoprim [From ] Allergy Unknown Verified 01/17/22 13:02 venom-honey bee Allergy Hives Verified 01/17/22 13:02 [bee venom (honey bee)] Social History Smoking Status: Former smoker ROS ROS ED ROS Narrative Constitutional: No fever, no chills. Generalized weakness. Increasing inability to ambulate independently. HEENT: No sore throat. No neck pain. No loss of vision. No rhinorrhea. Cardiovascular: No chest pain. No palpitations. No pedal edema. Respiratory: No cough, no shortness of breath. Abdominal: No abdominal pain. No nausea. No vomiting. Genitourinary: No dysuria. No hematuria. Musculoskeletal: No myalgias. No arthralgias. Neurologic: No headaches. No dizziness. No lightheadedness. Skin: No rash. No change in color. Psychiatric: No depression. No anxiety. EXAM Physical Exam Narrative Exam Narrative: Afebrile. Vital signs noted. HEENT: Normocephalic. Atraumatic. PERRL, EOMI. Neck soft and supple. No point tenderness or step off. Cardiovascular: Regular rate and rhythm. No murmurs, rubs, or gallops appreciated. Respiratory: No tachypnea. Lungs clear to auscultation bilaterally. Gastrointestinal: Abdomen soft, nontender, with normoactive bowel sounds. No rebound or guarding. Neurological: Awake. Alert. Oriented to person. Nonfocal, nonlateralizing. Skin: No rash. Normal color. No pallor. Musculoskeletal: No pedal edema. Full range of motion extremities. Const Vital Signs: 01/17/22 12:55 01/17/22 13:07 01/17/22 15:16 Temperature 97.2 F L Temperature Source Temporal Pulse Rate 94 82 Pulse Rate [Lying] Pulse Rate [Sitting (for 1 minute prior to obtaining)] Respiratory Rate 16 16 Respiratory Effort Normal Blood Pressure 136/78 H 135/67 H Blood Pressure [Lying] Blood Pressure [Sitting (for 1 minute prior to obtaining)] Blood Pressure Mean 97 89 Blood Pressure Mean [Lying] Blood Pressure Mean [Sitting (for 1 minute prior to obtaining)] Pulse Ox 97 Oxygen Delivery Method Room Air 01/17/22 15:26 Temperature Temperature Source Pulse Rate Pulse Rate [Lying] 91 Pulse Rate [Sitting (for 1 minute prior to obtaining)] 92 Respiratory Rate Respiratory Effort Blood Pressure Blood Pressure [Lying] 139/85 H Blood Pressure [Sitting (for 1 minute prior to obtaining)] 130/73 H Blood Pressure Mean Blood Pressure Mean [Lying] 103 Blood Pressure Mean [Sitting (for 1 minute prior to obtaining)] 92 Pulse Ox Oxygen Delivery Method MDM MDM MDM Narrative Medical decision making narrative: Screening labs were obtained including CBC and CMP along with urinalysis. I will obtain a chest x-ray although she has not had any respiratory symptoms. I had a lengthy discussion with the patient's son who states once again he does not want her admitted to a jail, but is open to home health care. CBC is grossly normal with a normal white count of 10.5, hemoglobin normal 12.7, hematocrit 38.3, and platelet count normal at 376. CMP is consistent with mild dehydration with a sodium of 130 and a chloride of 96. She was bolused 500 mL of normal saline intravenously. She also has an elevated BUN of 21 with a slight increase in her creatinine to 1.29. Glucose appropriately elevated at 172 with a normal anion gap of 7. Patient was discussed with case management/social work who has spoken with the patient's son. He reiterated that he does not want her admitted or placed in a jail but given her decreased ability to ambulate that he would like a wheelchair. Prescription was written for this and it will be delivered to his home tomorrow. Social work/case management stated that he does not want home health care currently. Urinalysis obtained and shows no evidence of infection with 0-5 WBCs. I do not feel that antibiotics are indicated, and she is currently taking an antibiotic for her diverticulitis. Chest x-ray interpreted by myself shows no evidence of an acute cardiopulmonary process. There is no evidence of pneumothorax or infiltrate. At this point in time, I do feel that she would be able to be discharged to follow-up with her primary care physician. Return instructions to the emergency department were reviewed. Disposition is discharged home in stable condition. Lab Data Attestation: I reviewed the patient's lab results. Labs: Laboratory Results - last 24 hr 01/17/22 01/17/22 01/17/22 14:05 14:05 15:22 WBC 10.5 RBC 4.46 Hgb 12.7 Hct 38.3 MCV 85.9 MCH 28.5 MCHC 33.2 RDW Std Deviation 42.5 RDW Coeff of Cirilo 13.6 Plt Count 376 MPV 8.9 Immature Gran % (Auto) 0.300 Neut % (Auto) 69.3 Lymph % (Auto) 16.3 L [place] % (Auto) 11.7 H Eos % (Auto) 2.0 Baso % (Auto) 0.4 Absolute Neuts (auto) 7.3 Absolute Lymphs (auto) 1.72 Nucleated RBC % 0 Sodium 130 L Potassium 4.3 Chloride 96 L Carbon Dioxide 27.0 Anion Gap 7 BUN 21 H Creatinine 1.29 H Estim Creat Clear Calc 28.76 Est GFR (MDRD) Af Amer 50 L Est GFR (MDRD) Non-Af 42 L BUN/Creatinine Ratio 16.3 Glucose 172 H Calcium 9.3 Total Bilirubin 0.50 AST 11 L ALT 13 Alkaline Phosphatase 84 Total Protein 6.7 Albumin 3.0 L Globulin 3.7 Albumin/Globulin Ratio 0.8 L Urine Color Yellow Urine Clarity Clear Urine pH 5.0 Ur Specific [place] 1.015 Urine Protein 15 H Urine Glucose (UA) Normal Urine Ketones Negative Urine Occult Blood 10 H Urine Nitrite Positive H Urine Bilirubin Negative Urine Urobilinogen Normal Ur Leukocyte Esterase 100 H Urine RBC 0-5 SEEN Urine WBC 0-5 SEEN Ur Squamous Epith Cells 5-10 SEEN Calcium Oxalate Crystal RARE Urine Bacteria RARE Urine Mucus 0 SEEN Radiography Diagnostic Testing: Clinical Impression(s) from Imaging Studies Chest X-Ray 01/17/22 13:53 IMPRESSION: No radiographic evidence of acute cardiopulmonary disease. Electronically Signed: Kermit Hess MD at 15:11 EDT , Discharge Plan Triage Chief Complaint: Weakness ED Provider: Pedro Luis Montague Dx/Rx/DC Orders Clinical Impression: Weakness, Dehydration, Acute kidney injury, Debility, Decreased ambulation status Instructions: ED Dehydration (Adult), ED Weakness (Uncertain Cause) Prescriptions: No Action levothyroxine 75 MCG tablet 75 mcg PO DAILY Label Comments: THYROID aspirin 81 MG tablet,chewable 81 mg PO DAILY@0800 Label Comments: blood thinner lisinopril 5 MG tablet 40 mg PO DAILY Label Comments: blood pressure mirtazapine 15 mg Tablet 15 mg PO QHS memantine 10 mg Tablet 5 mg PO BID metronidazole 500 mg tablet 500 mg PO TID Qty: 30 0RF ciprofloxacin HCl [Cipro] 500 mg tablet 500 mg PO BID Qty: 20 0RF Primary Care Provider: Vaibhav Colvin Referrals: Vaibhav Colvin MD [Primary Care Provider] - 1 Week if not improving Disposition Disposition: Home, Self Care
[2022-01-17] MEDS: 0.9% Normal Saline 1,000 ML 1000 ML IV (14:08)
[2022-01-17 14:16] LABS: Absolute Lymphocyte Count 1.72 X10^3/uL (0.83-4.51); Absolute Neutrophil Count 7.3 X10^3/uL (2.0-7.7); Basophil# 0.04 X10^3/uL; Basophil% 0.4 % (0-1); Eosinophil# 0.21 X10^3/uL; Hematocrit 38.3 % (37-47); Hemoglobin 12.7 g/dL (12.0-15.0); Lymphocyte # 1.72 X10^3/ul (0.83-4.51); Lymphocyte % 16.3 % (19-41); Mean Corp Hgb Conc 33.2 g/dL (32-36); Mean Corpuscular Hgb 28.5 pg (27.0-32.0); Mean Corpuscular Volume 85.9 fL (81-99); Mean Platelet Vol. 8.9 fl (6.2-12.0); Monocyte# 1.23 X10^3/uL; Monocyte% 11.7 % (0-10); NRBC Flagged by Analyzer 0 % (0-5); Neutrophil # 7.29 X10^3/uL (2.7-7.7); Neutrophil % 69.3 % (47-70); Platelet Count 376 K/mm3 (150-450); RBC Distribution Width CV 13.6 % (11.6-14.6); RBC Distribution Width SD 42.5 fl (35.1-43.9); Red Blood Count 4.46 M/mm3 (4.2-5.4); White Blood Count 10.5 K/mm3 (4.4-11.0)
[2022-01-17 14:32] LABS: ALB/GLOB Ratio 0.8 RATIO (0.9-2.4); AST(SGOT) 11 U/L (15-37); Alanine Aminotransfer ALT/SGPT 13 U/L (13-56); Alkaline Phosphatase 84 U/L (45-117); Anion Gap 7 (5-15); BUN 21 mg/dL (7-18); BUN/Creat Ratio 16.3 RATIO (10-20); Calcium,Total 9.3 mg/dL (8.5-10.1); Chloride 96 mmol/L (98-107); Creatinine, Serum 1.29 mg/dL (0.55-1.02); EST Glomerular Filtration Rate 42 mL/min (>60); Est Glom Filt Rate - Afr Amer 50 mL/min (>60); Estimated Creatinine Clearance 28.76 ml/min; Globulin 3.7 g/dL (2.2-4.2); Glucose 172 mg/dL (74-106); Potassium 4.3 mmol/L (3.5-5.1); Protein, Total 6.7 g/dL (6.4-8.2); Sodium Level 130 mmol/L (136-145)
--- NOTE | 2022-01-17 14:45 | CM.ED ---
ZABRINA met with patient's son who provides care for patient. He said that last week patient was walking by herself but for 2 days she has a decline in functioning. SW discussed Home Health and son voiced no interested in home health. Son indicates he needs a wheelchair and hospital bed. ZABRINA called Amie in TCU and she advised how to get order for hospital bed and wheelchair. ZABRINA had MD complete the order and ZABRINA faxed it to [facility] main number and then called Nata and updated her. She advised that Anthony will follow up tomorrow and depending on if they have the equipment they will schedule delivery. ZABRINA met with patient's son and updated him regarding home equipment. SW asked if he wanted [facility] referral and he declined stating I do everything they do. Son said that his and child also help with care of the patient and he has been doing this for years. ZABRINA advised [facility] will call tomorrow and update them about delivery etc. Son reports no other issues or needs. and ROCKY Espinoza updated. Plan[facility]
[2022-01-17 15:16] VITALS: BP 135/67; PULSE 82; RESP 16
[2022-01-17 15:26] VITALS: BP 130/73; BP 139/85; PULSE 91; PULSE 92
[2022-01-17 15:26] LABS: Mucous, Urine 0 SEEN /hpf (<or=2+)
[2022-01-17 15:30] LABS: Color, Urine Yellow (Yellow); Glucose, Dipstick Normal (Normal); Ketone-Dipstick Negative (Negative); Leukocyte Esterase-Dipstick 100 /ul (Negative); Nitrite-Dipstick Positive (Negative); Occult Blood-Urine 10 /ul (Negative); Protein-Dipstick 15 mg/dl (Negative); Specific Gravity, Urine 1.015 (1.002-1.030); Urine Bilirubin Dipstick Negative (Negative); Urine Clarity Clear (Clear); Urine Urobilinogen Normal (Normal)
[2022-01-17 15:41] LABS: Bacteria RARE /hpf (None Seen); Red Blood Cells-Urine 0-5 SEEN /hpf (0-5); Squamous Epithelial Cells - UA 5-10 SEEN /hpf (5-10)
[2022-01-17 15:42] LABS: Calcium Oxalate Crystals Ur RARE /hpf (<or=2+); White Blood Cells 0-5 SEEN /hpf (0-5)
--- NOTE | 2022-01-17 15:48 | ED.RN ---
Addendum entered by Jenn Sanchez 01/17/22 15:49: md notified. Original Note: Pt straight cath for urine. Urine noted to be dark and with over 900cc.
[2022-01-17 16:22] VITALS: PULSE 90; RESP 15; O2SAT 99
== END 2022-01-17 16:23 | disposition home or self-care (01) ==
PROVIDERS: Emergency Provider Emergency Medicine; PCP Internal Medicine; Visit Provider Emergency Medicine
DX: E86.0 Dehydration (principal); N17.9 Acute kidney failure, unspecified; Z87.891 Personal history of nicotine dependence; K57.92 Diverticulitis of intestine, part unspecified, without perforation or abscess without bleeding; I10 Essential (primary) hypertension; R53.81 Other malaise; Z86.73 Personal history of transient ischemic attack (TIA), and cerebral infarction without residual deficits; E03.9 Hypothyroidism, unspecified; Z79.82 Long term (current) use of aspirin
CPT/HCPCS: 71045; 80053; 81001; 85025; 96360; 99285; J7030; A4216